=== PATIENT | female | born 1965 | race Caucasian/White ===

== ENCOUNTER → 2019-11-18 10:32 | Outpatient (CLI) | payer BC, SELFPAY ==
--- NOTE | ~2019-11-18 | MM_ITS ---
EXAMINATION: MM screening marcy BI w shu HISTORY: Screening mammogram TECHNIQUE: Craniocaudal and mediolateral oblique 3-D tomosynthesis images were obtained and synthetic 2-D images were generated. CAD analysis was submitted and interpreted. COMPARISON: 09/14/2018, 09/11/2018, 04/17/2017 BREAST PARENCHYMAL COMPOSITION: The breasts are heterogeneously dense, which may obscure small masses . FINDINGS: Scattered benign-appearing calcifications are present. There is no evidence of suspicious m ass, calcification, or architectural distortion to suggest malignancy in either breast. There has bee n no suspicious interval change. IMPRESSION: 1. No mammographic evidence of malignancy. 2. Recommend routine screening mammography in one year. BI-RADS Category 2: Benign finding(s). Reviewed, dictated and finalized at location A.
== END ==
PROVIDERS: Visit Provider Obstetrics & Gynecology
DX: Z12.31 Encounter for screening mammogram for malignant neoplasm of breast (principal)
CPT/HCPCS: 77063; 77067

== ENCOUNTER 2019-12-25 00:21 | Outpatient (CLI) | payer BC, SELFPAY ==
[2019-12-25 18:42] LABS: SARS-CoV-2 RNA PCR Negative
== END 2019-12-25 00:22 | disposition home or self-care (01) ==
LOC: ANHCOVIDDT 00:21
PROVIDERS: PCP Physician Assistant; Visit Provider Internal Medicine Gastroenterology
DX: Z20.828 Contact with and (suspected) exposure to other viral communicable diseases (principal)
CPT/HCPCS: 87635; C9803; U0003

== ENCOUNTER 2019-12-27 01:00 | Day surgery (SDC) | payer BC, SELFPAY ==
[2019-12-19 15:10] VITALS: BMI 35.2
[2019-12-27 06:55] VITALS: BP 132/61; PULSE 71; RESP 18; TEMP 36.6; O2SAT 99; BMI 35.0
[2019-12-27] MEDS: LACTATED RINGERS 1,000 ML 150 ML IV CONT (07:06)
--- NOTE | 2019-12-27 07:13 | P.HP_ITS ---
History of Present Illness History of Present Illness Consent: Risks, benefits, and alternatives have been discussed and questions answered. Patient agrees to proceed with procedure. Chief complaint: Hx Colon Polyps Narrative: Danielle Nixon is a 54 year old female here for colonoscopy due to a history of having had a large sessile adenoma removed 3 years ago [facility] Family History Family History Mother Diabetes mellitus Hypertension Father Family history of cardiovascular disease Family history of chronic obstructive pulmonary disease Carcinoma of colon Social History Social History Smoking status: Never smoker Second hand tobacco smoke exposure: No Alcohol intake: never Meds Home Medications and Allergies Home Medications Medication Instructions Recorded Confirmed Type aspirin [Aspirin Low Dose] 81 mg PO DAILY 12/19/19 12/27/19 History atorvastatin 10 mg PO DAILY 12/19/19 12/27/19 History cholecalciferol (vitamin D3) 50 mcg PO DAILY 12/19/19 12/27/19 History [Vitamin D3] levothyroxine [Synthroid] 50 mcg PO DAILY 12/19/19 12/27/19 History spironolactone 25 mg PO DAILY 12/19/19 12/27/19 History spironolactone 100 mg PO DAILY 12/19/19 12/27/19 History Allergies Allergy/AdvReac Type Severity Reaction Status Date / Time No Known Allergies Allergy Verified 12/27/19 06:53 Vital Signs Vital Signs - 24 hr 12/27/19 06:55 Temperature 36.6 C Pulse Rate 71 Respiratory Rate 18 Blood Pressure 132/61 Pulse Oximetry 99 Exam Resp: Auscultation: clear to auscultation bilaterally Cardio: Rate: regular rate Rhythm: regular rhythm GI: GI Palp: Yes Soft to palpation and No Tenderness to palpation present (GI) Assessment and Plan Assessment and plan (1) Personal history of colonic polyps: Code(s): Z86.010 - Personal history of colonic polyps Status: Acute Assessment and Plan: Colonoscopy with possible biopsy or polypectomy or cautery or injection of substances.
--- NOTE | 2019-12-27 07:45 | WPDANESEPPF ---
Anes - Initial Pre Proc Eval Procedure: Operation Date: 12/27/19 08:00 Proposed Procedures p Screening Colonoscopy - Mihir Ham MD Date/Time: 12/27/19 07:45 Surgeon: Mihir Ham MD Pre Op Diagnosis: Hx Colon Polyps Patient Data Age: 54 Gender: F Height: 5 ft 6 in Weight: 98.5 kg Last Vital Signs Temp 97.8 F 12/27/19 06:55 Pulse 71 12/27/19 06:55 Resp 18 12/27/19 06:55 BP 132/61 12/27/19 06:55 Pulse Ox 99 12/27/19 06:55 Allergies Allergy/AdvReac Type Severity Reaction Status Date / Time No Known Allergies Allergy Verified 12/27/19 06:53 Home Medications Medication Instructions Recorded Confirmed Type aspirin [Aspirin Low Dose] 81 mg PO DAILY 12/19/19 12/27/19 History atorvastatin 10 mg PO DAILY 12/19/19 12/27/19 History cholecalciferol (vitamin D3) 50 mcg PO DAILY 12/19/19 12/27/19 History [Vitamin D3] levothyroxine [Synthroid] 50 mcg PO DAILY 12/19/19 12/27/19 History spironolactone 25 mg PO DAILY 12/19/19 12/27/19 History spironolactone 100 mg PO DAILY 12/19/19 12/27/19 History Patient hx anesthesia problems: none Family hx anesthesia problems: none PMFSH Past Medical History Medical History (Updated 12/27/19 @ 07:45 by John Aldana MD) Hyperlipidemia Hypothyroid Family History Family History Mother Diabetes mellitus Hypertension Father Family history of cardiovascular disease Family history of chronic obstructive pulmonary disease Carcinoma of colon Social History Social History Smoking status: Never smoker Second hand tobacco smoke exposure: No Alcohol intake: never Anes - Eval Final PreProcedure Day of Procedure 12/27/19 07:45 Patient weight: obese Airway: Mallampati scale class II Neurological: alert and oriented Last oral intake: >/= 8 hours ASA classification: II Emergent: no Anesthetic plan: proceed Anesthesia type and monitoring: general GIVS and standard monitoring Informed Consent: The patient's anesthetic plan and its attendant risks and benefits were discussed with the patient/family/POA. Questions were solicited and answers provided to the satisfaction of the patient/family/POA.
[2019-12-27 08:18] VITALS: BP 91/63; PULSE 80; RESP 16; O2SAT 97
[2019-12-27 08:28] VITALS: BP 106/74; PULSE 71; RESP 16; O2SAT 97
[2019-12-27 08:38] VITALS: BP 122/70; PULSE 62; RESP 16; O2SAT 99
== END 2019-12-27 09:01 | disposition home or self-care (01) ==
PROVIDERS: PCP Physician Assistant; Visit Provider Internal Medicine Gastroenterology
PROC: 0DJD8ZZ Inspection of Lower Intestinal Tract, Via Natural or Artificial Opening Endoscopic (ICD-10-PCS; CPT 45378; principal; 2019-12-27 08:00)
DX: Z12.11 Encounter for screening for malignant neoplasm of colon (principal); D12.5 Benign neoplasm of sigmoid colon; E03.9 Hypothyroidism, unspecified; E78.5 Hyperlipidemia, unspecified; E66.9 Obesity, unspecified; Z68.35 Body mass index [BMI] 35.0-35.9, adult; Z79.82 Long term (current) use of aspirin; Z79.899 Other long term (current) drug therapy
CPT/HCPCS: 45385; 88305; J2704; J7120

== ENCOUNTER 2020-06-01 09:06 | Outpatient (CLI) | payer BC, SELFPAY ==
--- NOTE | ~2020-06-01 | US_ITS ---
EXAMINATION: US soft tissue abdomen DATE: 06/01/2020 09:34 INDICATION: Right upper quadrant region of swollen tissue TECHNIQUE: Multiple grayscale and Doppler ultrasound images of the region of concern at the infracost al right upper quadrant abdominal wall were obtained. COMPARISON: None FINDINGS/IMPRESSION: There is varying thickness to the otherwise normal-appearing subcutaneous fat at the region of concer n without a discrete lipoma or other abnormal masses or fluid collections. Reviewed, dictated and finalized at location A. CIATE MERCHANDISE PLANNER
== END 2020-06-01 09:07 | disposition home or self-care (01) ==
PROVIDERS: PCP Physician Assistant; Visit Provider Physician Assistant
DX: R19.00 Intra-abdominal and pelvic swelling, mass and lump, unspecified site (principal)
CPT/HCPCS: 76705

== ENCOUNTER → 2021-03-02 12:20 | Outpatient (CLI) | payer BC, SELFPAY ==
--- NOTE | ~2021-03-02 | MM_ITS ---
EXAMINATION: MM screening marcy BI w shu HISTORY: Screening mammogram TECHNIQUE: Craniocaudal and mediolateral oblique 3-D tomosynthesis images were obtained and synthetic 2-D images were generated. CAD analysis was submitted and interpreted. COMPARISON: 11/18/2019 bilateral digital screening mammogram 09/14/2018 diagnostic right digital mammogram 09/11/2018, 04/17/2017 bilateral digital screening mammogram examinations BREAST PARENCHYMAL COMPOSITION: The breasts are heterogeneously dense, which may obscure small masses . FINDINGS: There is a biopsy marker in the right breast; history of prior right breast benign biopsy i n September 2018. Scattered benign calcifications. There is no evidence of suspicious mass, calcification, or architectural distortion to suggest malignancy in either breast. There has been no suspicious inte rval change. IMPRESSION: 1. No mammographic evidence of malignancy. 2. Recommend routine screening mammography in one year. BI-RADS Category 2: Benign finding(s). Reviewed, dictated and finalized at location A.
== END ==
PROVIDERS: PCP Physician Assistant; Visit Provider Obstetrics & Gynecology
DX: Z12.31 Encounter for screening mammogram for malignant neoplasm of breast (principal)
CPT/HCPCS: 77063; 77067

== ENCOUNTER → 2021-04-05 09:52 | Outpatient (CLI) | payer BC, SELFPAY ==
[2021-04-05 18:36] LABS: SARS-CoV-2 RNA PCR Negative
== END ==
PROVIDERS: PCP Physician Assistant; Visit Provider Internal Medicine
DX: R68.89 Other general symptoms and signs (principal); Z20.822 Contact with and (suspected) exposure to COVID-19
CPT/HCPCS: C9803; U0003; U0005

== ENCOUNTER → 2022-06-03 11:28 | Outpatient (CLI) | payer BC, SELFPAY ==
--- NOTE | ~2022-06-03 | MM_ITS ---
EXAMINATION: MM screening marcy BI w shu HISTORY: Screening mammogram TECHNIQUE: Craniocaudal and mediolateral oblique 3-D tomosynthesis images were obtained and synthetic 2-D images were generated. CAD analysis was submitted and interpreted. COMPARISON: 03/02/2021, 11/18/2019, 09/14/2018, 09/11/2018 BREAST PARENCHYMAL COMPOSITION: The breasts are heterogeneously dense, which may obscure small masses . FINDINGS: Scattered benign-appearing calcifications are present. No suspicious mass, calcification, o r architectural distortion are identified in either breast to suggest malignancy. There has been no s uspicious interval change. IMPRESSION: 1. No mammographic evidence of malignancy. 2. Recommend routine screening mammography in one year. BI-RADS Category 2: Benign finding(s). Reviewed, dictated and finalized at location A. ORARY DATA ENTRY CLERK
== END ==
PROVIDERS: PCP Physician Assistant; Visit Provider Nurse Practitioner Obstetrics & Gynecology
DX: Z12.31 Encounter for screening mammogram for malignant neoplasm of breast (principal)
CPT/HCPCS: 77063; 77067

== ENCOUNTER 2023-07-19 09:30 | Outpatient (RCR) | payer BC, SELFPAY ==
[2023-06-28 10:53] VITALS: BMI 41.5
[2023-06-28 10:55] VITALS: BMI 41.5
[2023-07-19 13:21] VITALS: BMI 41.5
== END 2023-09-11 09:46 | disposition home or self-care (01) ==
LOC: ANHDMC 09:30
PROVIDERS: PCP Physician Assistant; Visit Provider Internal Medicine
DX: E66.01 Morbid (severe) obesity due to excess calories (principal); Z68.41 Body mass index [BMI] 40.0-44.9, adult; Z71.3 Dietary counseling and surveillance
CPT/HCPCS: 97802; 97803

== ENCOUNTER 2023-11-21 11:29 | Outpatient (CLI) | payer BC, SELFPAY ==
--- NOTE | ~2023-11-21 | MM_ITS ---
EXAMINATION: MM screening [facility] BI w shu HISTORY: Screening TECHNIQUE: Craniocaudal and mediolateral oblique 3-D tomosynthesis images were obtained and synthetic 2-D images were generated. CAD analysis was submitted and interpreted. COMPARISON: Comparison to multiple prior studies sequentially, with oldest reviewed study dated 08/2016. BREAST PARENCHYMAL COMPOSITION: Not dense: There are scattered areas of fibroglandular density. FINDINGS: The left breast is stable without evidence for malignancy. There are developing clusters of calcifications in the upper central and upper outer quadrant of the right breast. There are developi ng low density masses in the lower inner quadrant of the right breast, middle third. IMPRESSION: 1. Developing right breast calcifications and masses. 2. Additional mammographic views and possible breast ultrasound are recommended. BI-RADS Category 0: Incomplete: Needs additional imaging evaluation. Reviewed, dictated and finalized at location B. IMPRESSION: 1. Developing right breast calcifications and masses. 2. Additional mammographic views and possible breast ultrasound are recommended . BI-RADS Category 0: Incomplete: Needs additional imaging evaluation.
== END 2023-11-21 11:30 ==
LOC: MICIMG 11:31
PROVIDERS: PCP Physician Assistant; Visit Provider Physician Assistant
DX: Z12.31 Encounter for screening mammogram for malignant neoplasm of breast (principal); N64.89 Other specified disorders of breast
CPT/HCPCS: 77063; 77067

== ENCOUNTER 2023-11-28 08:51 | Outpatient (CLI) | payer BC, SELFPAY ==
--- NOTE | ~2023-11-28 | MMUS_ITS ---
EXAMINATION: MM diagnostic marcy RT w shu, US breast RT complete HISTORY: Follow-up right breast calcifications and masses. TECHNIQUE: Additional 3-D tomosynthesis images of the right breast were performed and synthetic 2-D i mages were generated. CAD analysis was submitted and interpreted. High resolution complete right will st ultrasound was performed. COMPARISON: Comparison to multiple prior studies sequentially, with oldest reviewed study dated 09/11. BREAST PARENCHYMAL COMPOSITION: Not dense: There are scattered areas of fibroglandular density. FINDINGS: MAMMOGRAPHIC FINDINGS: There is a new cluster of indeterminate calcifications in the upper outer quadrant of the right breas t, middle third. There is a nearby cluster of punctate calcifications with associated tissue marker, biopsy-proven benign. No discrete mass or architectural distortion is seen. ULTRASOUND: Complete US of all 4 quadrants of the right breast and retroareolar region was reviewed. At 1:00, 5 c m from the nipple there is a 4 mm cyst. At 4:00 near the nipple there is a 3 mm cyst. At 10:00, 6 cm from the nipple there is a 4 mm cyst. No suspicious masses are identified in the right breast to sugg est malignancy. IMPRESSION: 1. Indeterminate cluster of calcifications upper outer quadrant of the right breast, new compared wit h prior study. 2. Stereotactic right breast biopsy recommended. BI-RADS category 4, suspicious findings. Reviewed, dictated and finalized at location B. IMPRESSION: 1. Indeterminate cluster of calcifications upper outer quadrant of the right br east, new compared with prior study. 2. Stereotactic right breast biopsy recommended. BI-RADS category 4, suspicious findings.
== END 2023-11-28 08:52 ==
LOC: MICIMG 08:52
PROVIDERS: PCP Physician Assistant; Visit Provider Internal Medicine
DX: R92.8 Other abnormal and inconclusive findings on diagnostic imaging of breast (principal)
CPT/HCPCS: 76641; 77061; 77065; G0279

== ENCOUNTER 2024-01-04 08:47 | Outpatient (CLI) | payer BC, SELFPAY ==
--- NOTE | ~2024-01-04 | MM_ITS ---
MM post biopsy invasive RT, MM stereotactic specimen RT, MM stereotactic bx RT EXAMINATION: MM post biopsy invasive RT, MM stereotactic specimen RT, MM stereotactic bx RT DATE: Ezequiel Torres M.D. INDICATION: Abnormal calcifications in the right breast. Stereotactic core biopsy is requested evalu ate for malignancy.] TECHNIQUE AND FINDINGS: The risks and potential benefits of the procedure were discussed with the patient and written informe d consent was obtained. The patient was placed in the prone position clustered at the table with the right breast in craniocaudal compression, and the area of interest was localized and targeted utiliz ing digital imaging with stereotaxis. After sterile preparation of the skin, 1% lidocaine was utilized for local anesthesia at the skin pun cture site and 1% lidocaine with epinephrine was utilized for deeper local anesthesia/is about the bi opsy site. A 9G POSLavu vacuum assisted biopsy needle was advanced to the level of the calcification o f interest from a cephalad approach utilizing stereotactic guidance and a total of 6 tissue core biop sies were obtained. A specimen radiograph demonstrates that the calcifications of interest are included within the tissue cores. A tissue marker clip was then placed at the biopsy site. The needle was removed and hemosta sis was achieved. The patient tolerated the procedure well and there is no evidence of significant i mmediate complication. The patient was given verbal as well as written postprocedural instructions p rior to discharge from the department. Tissue cores were submitted to surgical pathology for histolo gic analysis. A 2-view right unilateral digital mammogram was obtained post procedure and this demonstrates that th e tissue marker clip is in expected position.] IMPRESSION: 1. Successful stereotactic biopsy of calcifications in the upper central aspect of the right breast, followed by tissue marker clip placement. Please refer to pathology report for histologic analysis. Reviewed, dictated and finalized at location B. IMPRESSION: 1. Successful stereotactic biopsy of calcifications in the upper central aspec t of the right breast, followed by tissue marker clip placement. Please refer to pathology report for histologic analysis. IMPRESSION: 1. Successful stereotactic biopsy of calcifications in the upper central aspec t of the right breast, followed by tissue marker clip placement. Please refer to pathology report for histologic analysis.
== END 2024-01-04 08:48 | disposition home or self-care (01) ==
PROVIDERS: PCP Internal Medicine; Visit Provider Internal Medicine
DX: R92.8 Other abnormal and inconclusive findings on diagnostic imaging of breast (principal)
CPT/HCPCS: 19081; 88305

== ENCOUNTER 2024-04-23 09:58 | Outpatient (CLI) | payer BC, SELFPAY ==
--- NOTE | ~2024-04-23 | DEXA_ITS ---
Bone Density Report Name: ROSIO MEDINA Age: 59 Sex: Female Ethnicity: White Date of : 1965 Indication: postmenopausal; screening for osteoporosis; hysterectomy; Referring Provider: ALLEN, CAROLINE Snell Study: Bone densitometry was performed. Exam Date: April 23, 2024 Accession number: [id number] Bone Density: Region BMD T-score Z-score Classification AP Spine(L1-L4) 1.028 -0.2 1.1 Normal Femoral Neck (Left) 0.842 -0.1 1.1 Normal Total Hip (Left) 1.104 1.3 2.2 Normal Femoral Neck (Right) 0.861 0.1 1.3 Normal Total Hip (Right) 1.162 1.8 2.6 Normal Total Hip Mean 1.133 1.6 2.4 Normal World Health Organization criteria for BMD impression classify patients as: Normal (T-score at or above -1.0), Osteopenia (T-score between -1.0 and -2.5), or Osteoporosis (T-score at or below -2.5). 10-year Fracture Risk: FRAX not reported because: All T-scores for Spine Total, Hip Total, Femoral Neck at or above -1.0 Clinical Information Provided by Patient: Has used the following medications: Vitamin D Has the following medical conditions: Hysterectomy Patient maximum height was 66 Menopause Age: 31 No regular weight bearing exercise Drinks caffeinated beverages Onset of menses at age 13 Number of children 2 Impression: The patient has normal bone mass. Discussion: BONE DENSITY IS ABOVE THE MINIMUM DESIRABLE LEVEL AT ALL SKELETAL SITES TESTED. This patient?s bone mineral density is above the minimum desirable level (T-score -1.0 or better) at all sites measured. The patient should follow a healthful lifestyle (good nutrition with adequate calcium and vitamin D, and appropriate weight-bearing exercise). Follow-Up: Consider repeating this study in 5 years or sooner if there is some new clinical indication. Reported by: GLADYS on 04/23/2024 10:35:00 AM. Reviewed, dictated and finalized at location APeter CALVERT
== END 2024-04-23 09:59 | disposition home or self-care (01) ==
PROVIDERS: PCP Internal Medicine; Visit Provider Physician Assistant
DX: M81.0 Age-related osteoporosis without current pathological fracture (principal)
CPT/HCPCS: 77080

== ENCOUNTER 2024-06-05 09:09 | Outpatient (CLI) | payer BC, SELFPAY ==
[2024-06-05 09:29] LABS: Basophils Percent Auto 0.8 % (0.2-1.2); Eosinophils Absolute Auto 0.1 K/mm3 (0-0.3); Eosinophils Percent Auto 2.6 % (0-4.4); Hematocrit 44.2 % (37.0-47.0); Hemoglobin 14.2 g/dL (12.0-15.0); Immature Granulocyte Absolute 0.01 K/mm3 (0.00-0.031); Immature Granulocyte Percent A 0.2 % (0-0.5); Lymphocytes Absolute Auto 2.09 K/mm3 (0.9-3.2); Lymphocytes Percent Auto 41.4 % (18.3-44.2); Mean Corpuscular HGB Conc 32.1 g/dl (32-36); Mean Corpuscular Hemoglobin 29.7 pg (26-34); Mean Corpuscular Volume 92.5 fl (80-100); Mean Platelet Volume 10.1 fl (7.4-10.4); Monocytes Absolute Auto 0.4 K/mm3 (0.1-0.6); Monocytes Percent Auto 7.7 % (2.6-8.5); Neutrophils Absolute Auto 2.4 K/mm3 (1.3-6.7); Neutrophils Percent Auto 47.3 % (45.5-73.1); Platelet Count Result 200 k/mm3 (150-375); Red Blood Count 4.78 M/mm3 (4.2-5.4); Red Cell Distribution Width 13.2 % (11.5-14.5); White Blood Count 5.1 K/mm3 (4.5-10.0)
[2024-06-05 09:44] LABS: Alanine Aminotransferase 16 U/L (6-35); Albumin Level 4.3 g/dL (3.5-5.1); Alkaline Phosphatase 69 U/L (38-126); Anion Gap 8 mmol/L (4-12); Aspartate Amino Transferase 18 U/L (14-36); Bilirubin,Total 0.5 mg/dL (0.2-1.3); Blood Urea Nitrogen 18 mg/dL (7-17); Calcium 9.3 mg/dL (8.4-10.2); Carbon Dioxide 28 mmol/L (22-30); Chloride 103 mmol/L (98-107); Cholesterol 194 mg/dL (0-200); Estimated Glomerular Filt Rate > 60; Glucose 104 mg/dL (65-110); HDL Direct 63 mg/dL; Potassium 4.4 mmol/L (3.4-5.0); Sodium 139 mmol/L (137-145); Triglycerides 145 mg/dL (<150)
[2024-06-05 09:59] LABS: LDL Cholesterol Direct 94 mg/dL
[2024-06-05 10:01] LABS: Free T4 Free Thyroxine 1.04 ng/dL (0.78-2.19); Vitamin D 25 Hydroxy 70.9 ng/mL
--- OUTSIDE RECORDS SUMMARY | 2024-06-06 22:19 | XMS_ITS | Referral Summary ---
Author Organization [facility] Address [address] [place] [address] Care Team Providers Care Dba Name Role Phone Unavailable Primary Care Provider Unavailabl e Source Comments [facility],non-owned Affiliates and Associated Physician Practices is amultiple site organization consisting of ambulatory clinics and hospital sitesin [place], [place], [place] and [place]. This disclosure is being madepursuant to the Care Everywhere program and may not contain all information available regarding this patient. Last updated 18.[facility] [employer] Social History Tobacco Use Types Packs/Day Years Used Date Smoking Tobacco: Never Assessed Sex and Gender Information Value Date Recorded Sex Assigned at Not on file Gender Identity Not on file Sexual Orientation Not on file Plan of Treatment Not on file
--- OUTSIDE RECORDS SUMMARY | 2024-06-06 22:19 | XMS_ITS | Encounter Summary ---
Author Organization [facility] Address [address] [place] [address] Care Team Providers Care User Experience Team Lead Name Role Phone Unavailable Primary Care Provider Unavailabl e Encounter Details Date Type Department Care Team (Late st Contact Info) Description 06/13/2018 Lab Requisition [facility] [address] [place] [address] Vianey Quiroz MD [address] [facility] [address] [place] [address] Social History Tobacco Use Types Packs/Day Years Used Date Smoking Tobacco: Never Assessed Sex and Gender Information Value Date Recorded Sex Assigned at Not on file Gender Identity Not on file Sexual Orientation Not on file documented as of this encounter Plan of Treatment Not on file documented as of this encounter Procedures Procedure Name Priority Date/Time Associated Diagnosis Comments DERMATOPATH TECHNICAL REPORT Routine 06/11/2018 12:00 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 Case: [id number] ? Authorizing Provider: ??Vianey Quiroz MD ? Collected: ? 06/11/2018 12:00 AM ? Pathologist: ? Judy Woodard MD ?Received: ?06/13/2018 06:30 AM ? Specimen: ?Skin, right back ? 11:16 AM [facility] Clinical History Nevus vs other, irritated. 11:16 AM [facility] Gross Description Specimen A: Received is one formalin filled container labeled with the patient's name and designated right back. The specimen consists of a shave measuring 2l5o1od. Jar 0. [facility] Dermatopathology Laboratory performed the technical component only. 11:16 AM [facility] Embedded Images 11:16 AM [facility] DISCLAIMER An external and internal positive and negative controls are appropriate for the histochemical, immunohistochemical and immunofluorescence stain(s) in this case (if any), except where stated explicitly. The performance characteristics of the stain(s) cited in this report were developed and its performance characteristic determined by the Dermatopathology Laboratory at [facility], directed by Dr. Alis Shepherd. These tests need not be, and therefore are not, approved by the [place] Food and Drug Administration. The tests are used for clinical purposes. 11:16 AM [facility]ERMATOP[facility] Pathology/Cytolog y TISSUE SPECIMEN FROM SKIN / Unknown 06/11/2018 06/13/2018 6:30 AM [facility] Vianey Quiroz MD LAB - PATHOLOGY/CYT OLOGY ORDERABLES DERMATOPATHOLOGY LABORATORY [facility] - Department of Dermatology [address] [place] [address], [facility] [phone] documented in this encounter Visit Diagnoses Not on filedocumented in this encounter
--- OUTSIDE RECORDS SUMMARY | 2024-06-06 22:19 | XMS_ITS | Encounter Summary ---
Author Organization [facility] Address [address] [place] [address] Care Team Providers Care Cleaning And Maintenance Worker Name Role Phone Unavailable Primary Care Provider Unavailabl e Encounter Details Date Type Department Care Team (Late st Contact Info) Description 03/30/2020 Lab Requisition [facility] [address] [facility] [address] [facility] [address] [place] [address] Vianey Quiroz MD [address] [facility] [address] [place] [address] Social History Tobacco Use Types Packs/Day Years Used Date Smoking Tobacco: Never Assessed Sex and Gender Information Value Date Recorded Sex Assigned at Not on file Gender Identity Not on file Sexual Orientation Not on file documented as of this encounter Plan of Treatment Not on file documented as of this encounter Procedures Procedure Name Priority Date/Time Associated Diagnosis Comments DERMATOPATHOLOGY Routine 03/26/2020 12:0 0 AM VISUAL MERCHANDISE MANAGER documented in this encounter Results * DERMATOPATHOLOGY (03/26/2020 12:00 AM VISUAL MERCHANDISE MANAGER) Case Report Dermatopathology Report ? Case: [id number] ? Authorizing Provider: ??Vianey Quiroz MD ? Collected: ? 03/26/2020 12:00 AM ? Ordering Location: ? [facility] ?Received: ?03/30/2020 10:48 AM ? Pathologist: ? Jessica Shepherd MD ? Specimen: ?Skin, right wade ? 0 3:45 PM [facility] DERMATOPATH[facility] Final Diagnosis Specimen A. SKIN, right wade: SEBORRHEIC KERATOSIS, MACULAR (L82.1) 0 3:45 PM [facility]ERMATOPATH[facility] Clinical History Lentigo R/O atypia; growing irregular color 0 3:45 PM [facility] Gross Description Specimen A: Received is one formalin filled container labeled with the patient's name and designated right wade. The specimen consists of a shave biopsy measuring 12x7x1 and 3x1x1 mm. Jar 0. 0 3:45 PM [facility] Microscopic Description Specimen A. SKIN, right wade: Sections show a relatively broad, flat proliferation of small keratinocytes. The surface is gently papillated, and there is increased basilar pigmentation. 0 3:45 PM [facility] Disclaimer An external and internal positive and negative controls are appropriate for the histochemical, immunohistochemical and immunofluorescence stain(s) in this case (if any), except where stated explicitly. The performance characteristics of the stain(s) cited in this report were developed and its performance characteristic determined by the Dermatopathology Laboratory at [facility], directed by Dr. Alis Shepherd. These tests need not be, and therefore are not, approved by the [place] Food and Drug Administration. The tests are used for clinical purposes. Billing Codes Specimen Charges Stain Charges 63474 1 0 3:45 PM [facility] Embedded Images 0 3:45 PM VISUAL MERCHANDISE MANAGER DERMATOPATHOLOGY LABORATORY Pathology/Cytolog y TISSUE SPECIMEN FROM SKIN / Unknown 03/26/2020 03/30/2020 10:48 AM VISUAL MERCHANDISE MANAGER Vianey Quiroz MD LAB - PATHOLOGY/CYT OLOGY ORDERABLES DERMATOPATHOLOGY LABORATORY [facility] - Department of Dermatology [facility] [address] [place] [address], [address] [phone] documented in this encounter Visit Diagnoses Not on filedocumented in this encounter
--- OUTSIDE RECORDS SUMMARY | 2024-06-06 22:19 | XMS_ITS | Data Portability ---
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 Patient will come back in a year unless there are new symptoms. Not available 03/01/2021 17:21:23 Plan of Treatment Reminders Order Date Submit Date Provider Last Modified By Organization Details Last Modified Time Details Appointments None record ed. Lab None record ed. Referral None record ed. Procedures None record ed. Surgeries None record ed. Imaging None record ed. Medication Orders None record ed. Patient TargetsNo targets recorded. Patient InstructionsNo instructions recorded. Reason for Referral None Reported. Results Created Date Observation Date Name Description Value Unit Range Abnormal Flag Note LastModifiedBy Organization Detail LastModifiedTime 03/02/2003/02/2021 MAMMO , scree valerie, bilat eral No observ ation record ed. ar[facility]hrup [facility] [address], [place], [address], 03/02/2021 18:30:40 06/03/19 23 06/03/2022 MAMMO , scree valerie, bilat eral No observ ation record ed. MANUEL [facility] [address], [place], [address], 06/22/2022 05:20:06 Result Notes None recorded. Problems Name Problem SNOMED Code Status Onset Date Resolution Date Notes Provider Name and Address Organization Details Recorded Time Screenin g for malignan t neoplasm of rectum Completed 201503/01/2021 Encounter for screening for malignant neoplasm of rectum;Re corded Elsewhere : No Locati on: [facility] So urce: EHR Chron ic: N Practic e ID: 0001 Bill able Time: 10:00:00 AM Maxine [facility] 17:13:31 Tinea corporis [id number] Completed 201503/01/2021 Tinea corporis; Recorded Elsewhere : No Locati on: [facility] So urce: EHR Chron ic: N Practic e ID: 0001 Bill able Time: 10:00:00 AM Maxine [facility] 17:13:[address] Concept Completed 201803/01/2021 Encntr for general adult medical exam w/o abnormal findings; Recorded Elsewhere : No Locati on: [facility] So urce: EHR Chron ic: N Practic e ID: 0001 Bill able Time: 09:30:00 AM Maxine [facility] 17:13:32 Increase d frequenc y of urinatio n [id number] Completed 201303/01/2021 Urinary frequency ;Recorded Elsewhere : No Locati on: [facility] So urce: EHR Chron ic: N Practic e ID: 0001 Bill able Time: 11:00:00 AM Maxine [facility] 17:13:[address] Concept Completed 201503/01/2021 Encntr for drawing checker exam (general) (routine) w/o abn findings; Recorded Elsewhere : No Locati on: [facility] So urce: EHR Chron ic: N Practic e ID: 0001 Bill able Time: 10:00:00 AM [facility]ine [facility] 17:13:34 Blood in urine [id number] Completed 201303/01/2021 HEMATURIA NOS;Recor ded Elsewhere : No Locati on: [facility] So urce: EHR Chron ic: N Practic e ID: 0001 Bill able Time: 03:59:58 PM Maxine [facility] 17:13:22 Speciali zed medical examinat ion Completed 201303/01/2021 Gynecolog ical Examinati on;Record ed Elsewhere : No Locati on: [facility] So urce: EHR Chron ic: N Practic e ID: 0001 Bill able Time: 11:00:00 AM [facility]ine [facility] 17:13:35 Female genital organ symptoms [id number] Completed 201303/01/2021 Pelvic pain;Alon rded Elsewhere : No Locati on: [facility] So urce: EHR Chron ic: N Practic e ID: 0001 Bill able Time: 11:00:00 AM Maxine [facility] 17:13:25 Adult health examinat ion Completed 201303/01/2021 ROUTINE MEDICAL EXAM;Alon rded Elsewhere : No Locati on: [facility] So urce: EHR Chron ic: N Practic e ID: 0001 Bill able Time: 11:00:00 AM [facility]ine [facility] 17:13:20 Screenin g for malignan t neoplasm of cervix Completed 201103/01/2021 Screening for malignant neoplasms of the cervix;Re corded Elsewhere : No Locati on: [facility] So urce: EHR Chron ic: N Practic e ID: 0001 Bill able Time: 10:00:00 AM [facility]ine [facility] 17:13:29 Radiolog ic finding [id number] Completed 201803/01/2021 Oth abn and inconclus placido findings on dx imaging of breast;Re corded Elsewhere : No Locati on: [facility] So urce: EHR Chron ic: N Practic e ID: 0001 Bill able Time: 08:19:09 AM [facility] 17:13:23 Microsco pic hematuri a [id number] Completed 201303/01/2021 HEMATURIA MICROSCOP IC;Practi ce ID: 0001 [facility] 17:13:28 Problem Notes None recorded. Procedures Surgical History Date Name Laterality Status Provider Name and Address Organization Details Recorded Time 03/02/20 21 Date of Last Mammogram completed [facility] 03/02/2021 15:08:53 04/17/20 17 Date of Last Pap Smear completed [facility] 03/01/2021 17:18:32 05/15/18 97 Total Hysterectomy completed [facility] 03/01/2021 17:17:23 05/15/18 94 Tubal Ligation completed [facility] 03/01/2021 17:17:08 dilation of pyloric stenosis using fluoroscopic guidance completed Ese Swan, [facility]- [address], [place], [address], [facility] 03/02/2021 15:22:04 Imaging Results Imaging Date Name Status LastModified by Organiz [facility] Details LastModified Time 03/02/2021 MAMMO, screening, bilateral completed [facility] [address], [place], [address], 03/02/2021 18:30:40 06/03/2022 MAMMO, screening, bilateral active MANUEL [facility] [address], [place], [address], 06/22/2022 05:20:06 Procedure Notes None recorded. Medical Equipment None Reported. Allergies No known drug allergies Medications Name Sig Start Date Stop Date Status Note LastModified by Organization Details LastModified Time atorvasta tin 10 mg tablet take 1 tablet (10MG) by oral route every day active Not Available Not Available No t Available spironola ctone 100 mg tablet active Not Available Not Available No t Available spironola ctone 25 mg tablet take 1 tablet by oral route every day 03/02 completed Not Available Not Available Not Available Synthroid 25 mcg tablet take 1 tablet by oral route every day 11/21 completed Prescrib ed Elsewher e: No Locat ion: [facility] odify By: liban mishra DateTime : 09/18/19 01:40:38 PM Not Available Not Available Not Available sulfameth azine (bulk) powder 10/20 completed Prescrib ed Elsewher e: Yes Loca tion: [facility] odify By: edil lopes DateTime : 09/21/19 12 10:00:00 AM Not Available Not Available Not Available levothyro xine 50 mcg tablet TAKE 1 TABLET DAILY active Not Available Not Available No t Available mupirocin 2 % topical ointment KOFFI TO WOUND BID. 03/02 completed Not Available Not Available Not Available nystatin 100,000 unit/gram topical powder apply by topical route 2 times every day to the affected area(s) 04/17 completed Prescrib ed Elsewher e: No Locat ion: [facility] odify By: edil lopes DateTime : 10/21/19 16 10:00:00 AM Not Available Not Available Not Available Vitamin D2 1,250 mcg (50,000 unit) capsule take 1 capsule by oral route every week 03/02 completed Prescrib ed Elsewher e: No Locat ion: [facility] odify By: starr lopes DateTime : 11/23/19 08:25:52 AM Not Available Not Available Not Available ketoconaz ole 2 % topical cream apply by topical route every day to the affected area(s) 04/17 completed Prescrib ed Elsewher e: No Locat ion: [facility] odify By: edil Morrissey ncounter DateTime : 10/21/19 16 10:00:00 AM Not Available Not Available Not Available Stanback Headache Powder 650 mg oral packet 03/02 completed Prescrib ed Elsewher e: Yes Loca tion: [facility] odify By: starr Morrissey ncounter DateTime : 09/21/19 12 10:00:00 AM Not Available Not Available Not Available Calcio Mayi 500 mg tablet 03/02 completed Prescrib ed Elsewher e: Yes Loca tion: [facility] odify By: starr Morrissey ncounter DateTime : 09/21/19 12 10:00:00 AM Not Available Not Available Not Available Vitamin D3 125 mcg (5,000 unit) tablet Take by oral route. active Not Available Not Available No t Available Vitals Date Recorded Body height Body mass index (BMI) Body weight Systolic blood pressure Diastolic blood pressure Provider Name and Address Organization Details Last Updated DateTime 03/02/2021 163.83 cm 40.4 kg/m2 566615.5 8 g 122 mm[Hg] 78 mm[Hg] Maxine [facility] 15:08:16 Social History Question Answer Notes LastModified by Organizat ion Details LastModified Time Tobacco Smoking Status Never Smoker [facility] 03/01/2021 17:16:36 What Is Your Level Of Alcohol Consumption? Occasional Information not available 03/01/2021 Are You Blind Or Do You Have Difficulty Seeing? No Information not available 03/01/2021 What Is Your Level Of Caffeine Consumption? Occasional Information not available 03/01/2021 Are You Deaf Or Do You Have Serious Difficulty Hearing? No Information not available 03/01/2021 What Type Of Diet Are You Following? REGULAR Information not available 03/01/2021 Do You Use Your Seat Belt Or Car Seat Routinely? Yes Information not available 03/01/2021 Do You Have Smoke And Carbon Monoxide Detectors In Your Home? Yes Information not available 03/01/2021 Do You Feel Stressed (tense, Restless, Nervous, Or Anxious, Or Unable To Sleep At Night)? [id number] Information not available 03/01/2021 Do You Use Any Illicit Or Recreational Drugs? No Information not available 03/01/2021 Do You Use Sunscreen Routinely? Yes Information not available 03/01/2021 Sex: Unknown Functional Status Question Answer Note LastModified by Organizat ion Details LastModified Time Are you able to walk? YESWOREST Information not available 03/01/2021 What is your exercise level? Occasional Information not available 03/01/2021 Mental Status None recorded. Family History Relationship Description Onset Age of this Age Resolved Age Notes LastModified by Organization Details LastModified Time Father Malignant tumor of colon Not available 2020 17:15:27 Father Chronic obstructive pulmonary disease Not available 2020 17:15:34 Father Heart disease Not available 2020 17:15:39 Father Anemia Not available 14:54:52 Father Hypercholest erolemia Not available 2020 14:55:10 Maternal Grandfather Heart disease Not available 2020 17:15:56 Mother Hypertensive disorder Not available 2020 17:16:05 Mother Diabetes mellitus Not available 2020 14:54:35 Mother Hypercholest erolemia Not available 2020 14:54:42 Maternal Aunt Malignant tumor of breast Not available 2020 14:55:26 Maternal Aunt Malignant tumor of breast Not available 2020 14:55:26 Medical History Condition Response Allergies (Food, seasonal, environmental ) N Other N Drug/Latex Allergies/Reactions N Breast Cancer N Blood Transfusion N Lung Disease N Dermatologic Disorders N Defects or Inherited Disease N Breast Problem N Gestational Diabetes N Hematologic disorders N Anesthesia Complications N History of STI N Deep Vein Thrombosis N Polycystic ovary syndrome N Anxiety Disorder N Autoimmune disease N Arthritis N Polyps N Infertility N History of abnormal pap N Acid Reflux (GERD) N Cancer N Varicosities N Stroke N Neurologic/Epilepsy N Endometriosis N High Cholesterol N Headaches N Fibromyalgia N Kidney Disease N Heart Problems N Thyroid Problems N Kidney or Bladder Problems N GI Problems N Eating Disorder N Anemia N Art (IVF or FET) N Psychiatric Illness N Ovarian Cancer N Diabetes N Pulmonary (TB, Asthma) N Hepatitis/Liver Disease N No Past Medical History N Eczema N Urinary Tract Infection N Abuse/Domestic Violence N Asthma N Trauma/Violence N Depression/ depression N Heart Disease N Pre-Eclampsia N Hypertension N Osteoporosis N Thrombophilias N Gynecological History Statement/Question Response Abnormal Pap N Date of Last Mammogram 03/02/2021 Date of LMP 05/15/1995 STIs/STDs N Current Control Method Hysterectom y 14 If Post Menopausal, Age at Menopause [age] Sexually Active? Y Age of first menstrual cycle 14 Date of Last Pap Smear 04/17/2017 Sexual Problems? N Obstetrics History GPAL:G 2 P 0 0 0 2 Type Value Living 2 Total 2 Past Encounters Encounter ID Performer Location Encounter Start Date Encounter Closed Date Diagnosis/Indication Diagnosis SNOMED-CT Code Diagnosis ICD10 Code Diagnosis Note [id number] Ese Swan [facility] [address] [address] 03/02/2021 14:33:51 03/02/2021 15:39:25 Gynecologic examination 74949730 Z01.419 Take Calcium with Vitamin D 12-1500mg daily. Do monthly self breast exams. It is advised to get annual flu shot in the fall and she could obtain at [facility] or [facility]. If you haven't received the Tdap vaccine in the last 10 years you should obtain one as well. Have mammogram yearly, bone density every 2-3 years and colonoscop y every 5-10 years depending on findings and history. Engage in daily exercise of low impact aerobic exercise 45-60 minutes 4-5 times weekly. Avoid tobacco and illicit drugs as well as using moderation with alcohol intake less than 1-2 8 oz beverages daily. This lifestyle behavior pattern will lead to less health conditions and longer life span. If BMI greater than 25 weight watchers or dietary consult advised. Questions have been answered. Patient appears to understand instructio ns, but if you have any further questions call or respond to this email USPSTF recommends against screening for cervical cancer in women older than 65yo or have a hysterecto my for non-cancer indication s; who have had adequate prior screening & are not otherwise at high risk for cervical cancer. Declined std screenMamm o done today wnlColon 2019 managed by PCP (vineet)Lucas consider age 60yo unless otherwise indicated. Family his tory of breast cancer [id number] Z80.3 Z80.0 Family history of colon & breast in her familyDisc ussed genetic screening. Declined but will consider moving forward.St ays up with all her yearly or required screenings No other family member has had genetic screening that she is aware of. Health Concerns Section Related Observation LastModified by Organization Detai ls LastModified Time None Recorded Concern Status LastModified by Organization Details LastModified Time None Recorded Advance Directives Directive None Recorded Payers Encounter Date Sequence Insurance Name Policy Number Policy Mohan Covered Member ID Mohan Member ID Guarantor Name 03/02/2021 1 [employer] [facility] [facility]: (PPO) [id number] Yovani Wong Tiffani [id number] Notes Date Note Type Note Provider Name and Address Organization Details Recorded Time 03/02/2021 text/html Annual Emt I/99 Post-MenopausalRe ported bypatient.Menopau murali Symptoms:no menopausal symptoms; normal vaginal lubrication Vaginal Bleeding:history of menopause having occurred; no history of post menopausal bleeding Urinary Symptoms:no hematuria; no incontinence; no nocturia; no urinary frequency Vulva:no genital lesion; no vulvar atrophy Vagina:normal vaginal discharge; no vaginal atrophy Breast:no breast lump; no nipple discharge; no breast pain Sexual Complaints:no sexual complaints Psychological Symptoms:no depression; no anxiety Preventive Measures:encourag e regular mammograms starting age 40; encourage self breast examination; encourage regular exercise; encourage no tobacco use; mammogram performed within the past year; history of recent colonoscopy Ese Swan, [facility]- [address], [place], [address], [place] [facility] 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 Status 03/01/20 21 1 CLOSED Fetus Data First Name Last Name Admitted to NICU Weight (g) Sex Living Outcome Pediatric Complications Fetus ID Race Codes Race Delivery Type [id number] Vaginal Delivery Ayad Calculation Initial Ayad Date Initial Exam Date Initial Exam Provider Initial Ultrasound Date Last Menstrual Period Date Ultra Sound Weeks Gestation 0 Eighteen To Twenty Week Ayad Update Ultra Sound Date Fundal Height At Umbil Quickening Date Ultra Sound Latest Weeks Gestation Final Ayad Confirmed By Final Ayad Confirmed Date Final Ayad Date Ultra Sound Latest Days Gestation 0 0 Menstrual History Last Menstrual Date Menses Monthly On Bcp Conception Prior Menses Frequency Hcg Plus Date Menarche Onset Age Delivery Information Delivery Date Delivery Type Labor Anesthesia Weeks Gestation Incision Type Labor Labor Length Hrs Delivered By Post Complications Tubal Sterilization Discharge Date Comments 3 Discharge Information Feeding Method Contraceptive Method Maternal HG B and HCT Levels Ob Episode Information Episode Created Date Number of Fetuses Patient Bloodtype Patient rh Status Prepregnancy Weight lbs Domestic Partner Domestic Partner Phone Father Name Glass Furnace Tender Status 03/01/20 21 1 CLOSED Fetus Data First Name Last Name Admitted to NICU Weight (g) Sex Living Outcome Pediatric Complications Fetus ID Race Codes Race Delivery Type F [id number] Vaginal Delivery Ayad Calculation Initial Ayad Date Initial Exam Date Initial Exam Provider Initial Ultrasound Date Last Menstrual Period Date Ultra Sound Weeks Gestation 0 Eighteen To Twenty Week Ayad Update Ultra Sound Date Fundal Height At Umbil Quickening Date Ultra Sound Latest Weeks Gestation Final Ayad Confirmed By Final Ayad Confirmed Date Final Ayad Date Ultra Sound Latest Days Gestation 0 0 Menstrual History Last Menstrual Date Menses Monthly On Bcp Conception Prior Menses Frequency Hcg Plus Date Menarche Onset Age Delivery Information Delivery Date Delivery Type Labor Anesthesia Weeks Gestation Incision Type Labor Labor Length Hrs Delivered By Post Complications Tubal Sterilization Discharge Date Comments 0 Discharge Information Feeding Method Contraceptive Method Maternal HG B and HCT Levels
--- OUTSIDE RECORDS SUMMARY | 2024-06-06 22:19 | XMS_ITS | Clinical Summary ---
Author Organization [facility] Address [address] [place] [address] Care Team Providers Care Embedded Nurse Name Role Phone Unavailable Primary Care Provider Unavailabl e Source Comments [facility] [employer],non-owned Affiliates and Associated Physician Practices is amultiple site organization consisting of ambulatory clinics and hospital sitesin [place], [place], [place] and [place]. This disclosure is being madepursuant to the Care Everywhere program and may not contain all information available regarding this patient. Last updated 18.[facility] [employer] Social History Tobacco Use Types Packs/Day Years Used Date Smoking Tobacco: Never Assessed Sex and Gender Information Value Date Recorded Sex Assigned at Not on file Gender Identity Not on file Sexual Orientation Not on file Plan of Treatment Health Maintenance Due Date Last Done Comments COLOGUARD (AGES 45-75) - COL ON CA SCREENING 1966 COLON MONITORING 1966 COLONOSCOPY - COLON CA SCREENING 1966 CT COLONOGRAPHY - COLON CA SCREENING 1966 Colorectal Cancer Screening 1966 FIT - COLON CA SCREENING 1966 FLEX SIG - COLON CA SCREENING 1966 LIPID TESTING 1966 MAMMOGRAM 1966 HIV SCREENING 1981 HEPATITIS C SCREENING 04/09/1984 DTAP/TDAP/TD VACCINES (1 - Tdap) 1985 HEPATITIS B VACCINE (1 of 3 - 19+ 3-dose series) 1985 PAP with HPV 1996 PNEUMOCOCCAL VACCINE 50+ (1 of 1 - PCV) 2016 ZOSTER VACCINE (1 of 2) 2016 COVID-19 VACCINE ( - 2023-2 5 season) 2024 INFLUENZA VACCINE (#1) 2024 DEPRESSION SCREENING 05/15/2024 HIB VACCINE Aged Out No longer eligi ble based on patient's age to complete this topic HPV VACCINE Aged Out No longer eligi ble based on patient's age to complete this topic MENINGOCOCCAL (Group B) VACCINE Aged Out No longer eligible based on patient's age to complete this topic MENINGOCOCCAL VACCINE Aged Out No fortunato dann eligible based on patient's age to complete this topic PNEUMOCOCCAL VACCINE Aged Out No long er eligible based on patient's age to complete this topic
--- OUTSIDE RECORDS SUMMARY | 2024-06-06 22:19 | XMS_ITS | Patient Health Summary ---
Author Organization [facility] Address [address] [facility] [place] [address] Care Team Providers Care Paraprofessional Education Assistant Name Role Phone Unavailable Primary Care Provider Unavailabl e Note from [facility],non-owned Affiliates and Associated Physician Practices is amultiple site organization consisting of ambulatory clinics and hospital sitesin [place], [place], [place] and [place]. This disclosure is being madepursuant to the Care Everywhere program and may not contain all information available regarding this patient. Last updated 18.[facility] Social History Tobacco Use Types Packs/Day Years Used Date Smoking Tobacco: Never Assessed Sex and Gender Information Value Date Recorded Sex Assigned at Not on file Gender Identity Not on file Sexual Orientation Not on file Procedures * DERMATOPATHOLOGY(Performed 08/31/2021) * DERMATOPATHOLOGY(Performed 03/26/2020) * DERMATOPATH TECHNICAL REPORT(Performed 06/11/2018) * DERMATOPATHOLOGY(Performed 11/21/2016) * DERMATOPATHOLOGY(Performed 05/20/2016) * DERMATOPATHOLOGY(Performed 07/23/2015) Results * DERMATOPATHOLOGY (08/31/2021 12:00 AM CDT) Only the most recent of5 resultswithin the time period is included. Case Report Dermatopathology Report ? Case: [id number] ? Authorizing Provider: ??Cookie Acevedo, DO ?? Collected: ? 08/31/2021 12:00 AM ? Ordering Location: ? [facility] Care DermPath Lab ?Received: ?08/31/2021 03:53 PM ? Pathologist: ? Michelle Appiah MD ? Specimens: ?? A) - Skin, right lateral ankle ? B) - Skin, scalp ? 2 4:26 PM CDT DERMATOPATHOLOGY LABORATORY Final Diagnosis Specimen A. SKIN, right lateral ankle: ACTINIC KERATOSIS, PIGMENTED (L57.0) (see microscopic description) Specimen B. SKIN, scalp: VERRUCA VULGARIS (B07.8) 2 4:26 PM CDT DERMATOPATHOLOGY LABORATORY Clinical History A: R/O: Melanoma B: R/O Atypia 2 4:26 PM CDT DERMATOPATHOLOGY LABORATORY Gross Description Specimen A: Received is one formalin filled container labeled with the patient's name and designated right lateral ankle. The specimen consists of a shave biopsy measuring [id number]. Jar 0. Specimen B: Received is one formalin filled container labeled with the patient's name and designated scalp. The specimen consists of a shave biopsy measuring 1p2i4wa and it is bisected. Jar 0. 2 4:26 PM CDT DERMATOPATHOLOGY LABORATORY Microscopic Description Specimen A. SKIN, right lateral ankle: There is alternating orthokeratosis and parakeratosis. Along the undersurface of the epidermis, there are buds of atypical keratinocytes in a disorderly arrangement. There is prominent pigmentation in some of the keratinocytes. The number of melanocytes, highlighted by MART-1/Melan-A immunohistochemical staining, is only mildly increased. Specimen B. SKIN, scalp: There is digitated epidermal hyperplasia, hypergranulosis, vacuolated granular layer cells, and compact hyperorthokeratosis . 2 4:26 PM CDT DERMATOPATHOLOGY LABORATORY Disclaimer An external and internal positive and negative controls are appropriate for the histochemical, immunohistochemical and immunofluorescence stain(s) in this case (if any), except where stated explicitly. The performance characteristics of the stain(s) cited in this report were developed and its performance characteristic determined by the Dermatopathology Laboratory at [facility], directed by Dr. Alis Shepherd. These tests need not be, and therefore are not, approved by the [place] Food and Drug Administration. The tests are used for clinical purposes. Billing Codes Specimen Charges Stain Charges 45106 12218 1 1 05809 1 2 4:26 PM CDT DERMATOPATHOLOGY LABORATORY Embedded Images 2 4:26 PM CDT DERMATOPATHOLOGY LABORATORY Pathology/Cytology TISSUE SPECIMEN FROM SKIN / Unknown 08/31/2021 08/31/2021 3:53 PM CDT Miscellaneous samples (specimen) TISSUE SPECIMEN FROM SKIN / Unknown 08/31/2021 08/31/2021 3:53 PM CDT Cookie Acevedo DO LAB - PATHOLOGY/C YTOLOGY ORDERABLES DERMATOPATHOLOGY LABORATORY [facility] - Department of Dermatology [facility] Medicine [address] [place] [address], [address] [phone] * DERMATOPATH TECHNICAL REPORT (06/11/2018 12:00 AM SPECIAL EFFECTS DESIGNER) Case Report Dermatopathology Report ? Case: [id number] ? Authorizing Provider: ??Vianey Quiroz MD ? Collected: ? 06/11/2018 12:00 AM ? Pathologist: ? Judy Woodard MD ?Received: ?06/13/2018 06:30 AM ? Specimen: ?Skin, right back ? 11:16 AM [facility] DERMATOPATHOLOGY LABORATORY Clinical History Nevus vs other, irritated. 11:16 AM [facility] DERMATOPATHOLOGY LABORATORY Gross Description Specimen A: Received is one formalin filled container labeled with the patient's name and designated right back. The specimen consists of a shave measuring 1l3s5oy. Jar 0. [facility] Dermatopathology Laboratory performed the technical component only. 11:16 AM [facility] DERMATOPATHOLOGY LABORATORY Embedded Images 11:16 AM [facility] DERMATOPATHOLOGY LABORATORY DISCLAIMER An external and internal positive and negative controls are appropriate for the histochemical, immunohistochemical and immunofluorescence stain(s) in this case (if any), except where stated explicitly. The performance characteristics of the stain(s) cited in this report were developed and its performance characteristic determined by the Dermatopathology Laboratory at [facility], directed by Dr. Alis Shepherd. These tests need not be, and therefore are not, approved by the [place] Food and Drug Administration. The tests are used for clinical purposes. 11:16 AM [facility] DERMATOPATHOLOGY LABORATORY Pathology/Cytolog y TISSUE SPECIMEN FROM SKIN / Unknown 06/11/2018 06/13/2018 6:30 AM [facility] Vianey Quiroz MD LAB - PATHOLOGY/CYT OLOGY ORDERABLES DERMATOPATHOLOGY LABORATORY [facility] - Department of Dermatology [address], [address] [place] [address], [facility] [phone]
--- OUTSIDE RECORDS SUMMARY | 2024-06-06 22:19 | XMS_ITS | Clinical Summary ---
Author Organization [facility] Address [address] [place] [address]. [place], [place] [address] [place] [address] Care Team Providers Care Outpatient Scheduler Name Role Phone Unavailable Primary Care Provider Unavailabl e Social History Tobacco Use Types Packs/Day Years Used Date Smoking Tobacco: Never Assessed Comments Unknown Sex and Gender Information Value Date Recorded Sex Assigned at Not on file Legal Sex Female 5:15 PM CDT Gender Identity Not on file Sexual Orientation Not on file Plan of Treatment Health Maintenance Due Date Last Done Comments Cervical Cancer Screening Pa p Smear (Age 30 to 64) Every 3 Years 1966 Colorectal Cancer Screening Colonoscopy (10 Years) 1966 Annual Physical 1969 Hepatitis C 1984 DTaP, Tdap and Td Vaccines ( 1 - Tdap) 1985 Hepatitis B Vaccines (1 of 3 - 19+ 3-dose series) 1985 Cervical Cancer Screening Pa p with HPV Testing (Age 30 to 64) Every 5 Years 1996 Cervical Cancer Screening with HPV 1996 Mammogram Screening 2006 Zoster Vaccines (1 of 2) 2016 COVID-19 Vaccine (2023-2 5 season) 2024 Influenza Adult (#1) 2024 Meningococcal Vaccine Aged Out No fortunato dann eligible based on patient's age to complete this topic Pneumococcal Vaccine: Pediat rics (0 to 5 Years) and At-Risk Patients (6 to 64 Years) Aged Out No longer eligible b ased on patient's age to complete this topic RSV Immunizations Under 20 Months Aged Out No longer eligible based on patient's age to complete this topic
== END 2024-06-05 09:10 | disposition home or self-care (01) ==
LOC: ANHLAB 09:12
PROVIDERS: PCP Internal Medicine; Visit Provider Internal Medicine
DX: Z00.00 Encounter for general adult medical examination without abnormal findings (principal); E03.9 Hypothyroidism, unspecified; E55.9 Vitamin D deficiency, unspecified
CPT/HCPCS: 36415; 80053; 80061; 82306; 84439; 84443; 85025

== ENCOUNTER 2024-07-08 10:15 | Outpatient (CLI) | payer BC, SELFPAY ==
--- NOTE | ~2024-07-08 | MM_ITS ---
EXAMINATION: MM diagnostic marcy RT w shu HISTORY: Six-month follow-up of benign stereotactic biopsy TECHNIQUE: 3-D tomosynthesis images of the right breast were performed and synthetic 2-D images were generated. CAD analysis was submitted and interpreted. COMPARISON: 11/28/2023, 11/21/2023, 06/03/2022 BREAST PARENCHYMAL COMPOSITION:Not Dense. There are scattered areas of fibroglandular density. FINDINGS: No suspicious mass lesion or distortion seen. No suspicious microcalcification. Biopsy parker er clips are present. IMPRESSION: No mammographic evidence for malignancy. BI-RADS Category 2: Benign finding(s). Reviewed, dictated and finalized at location . NERATOR OPERATOR
--- OUTSIDE RECORDS SUMMARY | 2024-07-08 11:38 | XMS_ITS | Encounter Summary ---
Author Organization [facility] Address [address] [facility] [place] [address] Care Team Providers Care Developmental Specialist Name Role Phone Unavailable Primary Care Provider Unavailabl e Encounter Details Date Type Department Care Team (Late st Contact Info) Description 06/13/2018 Lab Requisition [facility] Care DermPath Lab [address] [facility] [address] [place] [phone] Vianey Quiroz MD [address] [facility] [address] [place] [address] Social History Tobacco Use Types Packs/Day Years [...] DERMATOPATH TECHNICAL REPORT Routine 06/11/2018 12:00 AM DAY TREATMENT CLINICIAN/ART THERAPIST documented in this encounter Results * DERMATOPATH TECHNICAL REPORT (06/11/2018 12:00 AM DAY TREATMENT CLINICIAN/ART THERAPIST) Case Report Dermatopathology Report Case: [id number] Authorizing Provider: Vianey Quiroz MD Collected: 06/11/2018 12:00 AM Pathologist: Judy Woodard MD Received: 06/13/2018 06:30 AM Specimen: Skin, right back 9 11:16 AM DAY TREATMENT CLINICIAN/ART THERAPIST DERMATOPATHOLOGY LABORATORY Clinical History Nevus vs other, irritated. 9 11:16 AM DAY TREATMENT CLINICIAN/ART THERAPIST DERMATOPATHOLOGY LABORATORY Gross Description Specimen A: Received is one formalin filled container labeled with the patient's name and designated right back. The specimen consists of a shave measuring 1s2w1jq. Jar 0. [facility] Dermatopathology Laboratory performed the technical component only. 9 11:16 AM DAY TREATMENT CLINICIAN/ART THERAPIST DERMATOPATHOLOGY LABORATORY Embedded Images 9 11:16 AM [facility] DERMATOPATHOLOGY LABORATORY DISCLAIMER An external and internal positive and negative controls are appropriate for the histochemical, immunohistochemical and immunofluorescence stain(s) in this case (if any), except where stated explicitly. The performance characteristics of the stain(s) cited in this report were developed and its performance characteristic determined by the Dermatopathology Laboratory at [facility], directed by Dr. Alis Shepherd. These tests need not be, and therefore are not, approved by the [place] Food and Drug Administration. The tests are used for clinical purposes. 9 11:16 AM [facility] DERMATOPATHOLOGY LABORATORY Pathology/Cytolog y TISSUE SPECIMEN FROM SKIN / Unknown 06/11/2018 06/13/2018 6:30 AM DAY TREATMENT CLINICIAN/ART THERAPIST Vianey Quiroz MD LAB - PATHOLOGY/CYT OLOGY ORDERABLES DERMATOPATHOLOGY LABORATORY [facility] - Department of Dermatology [address] [place] [address], 5th Floor Lab [address] [phone] documented in this encounter Visit Diagnoses Not on filedocumented in this encounter
--- OUTSIDE RECORDS SUMMARY | 2024-07-08 11:38 | XMS_ITS | Encounter Summary ---
Author Organization [facility] Address [address] [facility] [place] [address] Care Team Providers Care Cook Sauce Name Role Phone Unavailable Primary Care Provider Unavailabl e Encounter Details Date Type Department Care Team (Late st Contact Info) Description 03/30/2020 Lab Requisition [facility] DermPath Lab [address] [facility] [facility] [place] [phone] Vianey Quiroz MD [address] [facility] [address] [place] [address] Social History Tobacco Use Types Packs/Day Years [...] Comments DERMATOPATHOLOGY Routine 03/26/2020 12:0 0 AM TERRAZZO JOURNEYMAN documented in this encounter Results * DERMATOPATHOLOGY (03/26/2020 12:00 AM TERRAZZO JOURNEYMAN) Case Report Dermatopathology Report Case: [id number] Authorizing Provider: Vianey Quiroz MD Collected: 03/26/2020 12:00 AM Ordering Location: [facility] DermPath Lab Received: 03/30/2020 10:48 AM Pathologist: Jessica Shepherd MD Specimen: Skin, right wade 0 3:45 PM TERRAZZO JOURNEYMAN DERMATOPATHOLOGY LABORATORY Final Diagnosis Specimen A. SKIN, right wade: SEBORRHEIC KERATOSIS, MACULAR (L82.1) 0 3:45 PM TERRAZZO JOURNEYMAN DERMATOPATHOLOGY LABORATORY Clinical History Lentigo R/O atypia; growing irregular color 0 3:45 PM [facility] DERMATOPATHOLOGY LABORATORY Gross Description Specimen A: Received is one formalin filled container labeled with the patient's name and designated right wade. The specimen consists of a shave biopsy measuring 12x7x1 and 3x1x1 mm. Jar 0. 0 3:45 PM [facility] DERMATOPATHOLOGY LABORATORY Microscopic Description Specimen A. SKIN, right wade: Sections show a relatively broad, flat proliferation of small keratinocytes. The surface is gently papillated, and there is increased basilar pigmentation. 0 3:45 PM [facility] DERMATOPATHOLOGY LABORATORY Disclaimer An external and internal positive and negative controls are appropriate for the histochemical, immunohistochemical and immunofluorescence stain(s) in this case (if any), except where stated explicitly. The performance characteristics of the stain(s) cited in this report were developed and its performance characteristic determined by the Dermatopathology Laboratory at [facility], directed by Dr. Alis Shepherd. These tests need not be, and therefore are not, approved by the [place] Food and Drug Administration. The tests are used for clinical purposes. Billing Codes Specimen Charges Stain Charges 16287 1 0 3:45 PM [facility] DERMATOPATHOLOGY LABORATORY Embedded Images 0 3:45 PM [facility] DERMATOPATHOLOGY LABORATORY Pathology/Cytolog y TISSUE SPECIMEN FROM SKIN / Unknown 03/26/2020 03/30/2020 10:48 AM TERRAZZO JOURNEYMAN Vianey Quiroz MD LAB - PATHOLOGY/CYT OLOGY ORDERABLES DERMATOPATHOLOGY LABORATORY [facility] - Department of Dermatology [address], [address] [phone] documented in this encounter Visit Diagnoses Not on filedocumented in this encounter
--- OUTSIDE RECORDS SUMMARY | 2024-07-08 11:38 | XMS_ITS | Data Portability ---
Author Organization [facility] [place] Address [address] [place] [address] Care Team Providers Care Drying Machine Back Tender Name Role Phone MARIELY VILLAN Primary Care Provider [phone] Assessment Encounter Date Assessment Date Assessment LastModified [...] eral No observ ation record ed. aruehrup [facility] [address], [place], [address], 03/02/2021 18:30:40 06/03/19 23 06/03/2022 MAMMO , scree valerie, bilat eral No observ ation record ed. MANUEL [facility] [address], [place], [address], 06/22/2022 05:20:06 Result Notes None recorded. Problems Name Problem SNOMED Code Status Onset Date Resolution Date Notes Provider Name and Address Organization Details Recorded Time Screenin g for malignan t neoplasm of rectum Completed 201503/01/2021 Encounter for screening for malignant neoplasm of rectum;Re corded Elsewhere : No Locati on: [facility] So urce: EHR Chron ic: N Practic e ID: 0001 Bill able Time: 10:00:00 AM Maxine [facility]ford [facility] 17:13:31 Tinea corporis [id number] Completed 201503/01/2021 Tinea corporis; Recorded Elsewhere : No Locati on: [facility] So urce: EHR Chron ic: N Practic e ID: 0001 Bill able Time: 10:00:00 AM [facility]ine [facility] 17:13:[address] Concept Completed 201803/01/2021 Encntr for general adult medical exam w/o abnormal findings; Recorded Elsewhere : No Locati on: [facility] So urce: EHR Chron ic: N Practic e ID: 0001 Bill able Time: 09:30:00 AM [facility] 17:13:32 Increase d frequenc y of urinatio n [id number] Completed 201303/01/2021 Urinary frequency ;Recorded Elsewhere : No Locati on: [facility] So urce: EHR Chron ic: N Practic e ID: 0001 Bill able Time: 11:00:00 AM [facility]ine [facility] 17:13:[address] Concept Completed 201503/01/2021 Encntr for testing analyst exam (general) (routine) w/o abn findings; Recorded Elsewhere : No Locati on: [facility] So urce: EHR Chron ic: N Practic e ID: 0001 Bill able Time: 10:00:00 AM [facility] 17:13:34 Blood in urine [id number] Completed 201303/01/2021 HEMATURIA NOS;Recor ded Elsewhere : No Locati on: [facility] So urce: EHR Chron ic: N Practic e ID: 0001 Bill able Time: 03:59:58 PM Maxine Huang [facility] 17:13:22 Speciali zed medical examinat ion Completed 201303/01/2021 Gynecolog ical Examinati on;Record ed Elsewhere : No Locati on: [facility] So urce: EHR Chron ic: N Practic e ID: 0001 Bill able Time: 11:00:00 AM [facility] 17:13:35 Female genital organ symptoms [id number] Completed 201303/01/2021 Pelvic pain;Alon rded Elsewhere : No Locati on: [facility] So urce: EHR Chron ic: N Practic e ID: 0001 Bill able Time: 11:00:00 AM Maxine Huang [facility] 17:13:25 Adult health examinat ion Completed 201303/01/2021 ROUTINE MEDICAL EXAM;Alon rded Elsewhere : No Locati on: [facility] So urce: EHR Chron ic: N Practic e ID: 0001 Bill able Time: 11:00:00 AM [facility]ine [facility] 17:13:20 Screenin g for malignan t neoplasm of cervix Completed 201103/01/2021 Screening for malignant neoplasms of the cervix;Re corded Elsewhere : No Locati on: [facility] So urce: EHR Chron ic: N Practic e ID: 0001 Bill able Time: 10:00:00 AM [facility] 17:13:29 Radiolog ic finding [id number] Completed 201803/01/2021 Oth abn and inconclus placido findings on dx imaging of breast;Re corded Elsewhere : No Locati on: [facility] So urce: EHR Chron ic: N Practic e ID: 0001 Bill able Time: 08:19:09 AM [facility] 17:13:23 Microsco pic hematuri a [id number] Completed 201303/01/2021 HEMATURIA MICROSCOP IC;Practi ce ID: 0001 [facility] 17:13:28 Problem Notes None recorded. Procedures Surgical History Date Name Laterality Status Provider Name and Address Organization Details Recorded Time 03/02/20 21 Date of Last Mammogram completed [facility] 03/02/2021 15:08:53 04/17/20 17 Date of Last Pap Smear completed [facility] 03/01/2021 17:18:32 05/15/18 97 Total Hysterectomy completed [facility] 03/01/2021 17:17:23 05/15/18 94 Tubal Ligation completed [facility] 03/01/2021 17:17:08 dilation of pyloric stenosis using fluoroscopic guidance completed Ese Swan, [facility]- [address], [place], [address], [facility] 03/02/2021 15:22:04 Imaging Results Imaging Date Name Status LastModified by [facility] Details LastModified Time 03/02/2021 MAMMO, screening, bilateral completed purvi[facility]hr[facility] [address], [place], [address], 03/02/2021 18:30:40 06/03/2022 MAMMO, screening, bilateral active MANUEL [facility] [address], [place], [address], 06/22/2022 05:20:06 Procedure Notes None recorded. Medical [...] Prescrib ed Elsewher e: No Locat ion: [facility] odify By: liban mishra DateTime : 09/18/19 01:40:38 PM Not Available Not Available Not Available sulfameth azine (bulk) powder 10/20 completed Prescrib ed Elsewher e: Yes Loca tion: [facility] odify By: edil lopes DateTime : 09/21/19 [...] Prescrib ed Elsewher e: No Locat ion: [facility] odify By: edil lopes DateTime : 10/21/19 16 10:00:00 AM Not Available Not Available Not Available Vitamin D2 1,250 mcg (50,000 unit) capsule take 1 capsule by oral route every week 03/02 completed Prescrib ed Elsewher e: No Locat ion: [facility] odify By: starr lopes DateTime : 11/23/19 08:25:52 AM Not Available Not Available Not Available ketoconaz ole 2 % topical cream apply by topical route every day to the affected area(s) 04/17 completed Prescrib ed Elsewher e: No Locat ion: Kassy morrissey [facility] odify By: edil Morrissey ncounter DateTime : 10/21/19 16 10:00:00 AM Not Available Not Available Not Available Stanback Headache Powder 650 mg oral packet 03/02 completed Prescrib ed Elsewher e: Yes Loca tion: [facility] odify By: starr Morrissey ncounter DateTime : 09/21/19 12 10:00:00 AM Not Available Not Available Not Available Calcio Mayi 500 mg tablet 03/02 completed Prescrib ed Elsewher e: Yes Loca tion: [facility] odify By: starr Morrissey ncounter DateTime [...] Updated DateTime 03/02/2021 163.83 cm 40.4 kg/m2 294955.5 8 g 122 mm[Hg] 78 mm[Hg] Maxine [facility] 15:08:16 Social History Question Answer Notes LastModified by Organizat ion Details LastModified Time Tobacco Smoking Status Never Smoker [facility] 03/01/2021 17:16:36 What Is Your Level [...] Anxious, Or Unable To Sleep At Night)? [id number] Information not available 03/01/2021 Do You Use [...] ) N Other N Drug/Latex Allergies/Reactions N Blood Transfusion N Breast Cancer N Dermatologic Disorders N Lung Disease N Defects or Inherited Disease N Breast Problem N Gestational Diabetes N Hematologic disorders N Anesthesia Complications N History of STI N Deep Vein Thrombosis N Polycystic ovary syndrome N Anxiety Disorder N Autoimmune disease N Arthritis N Polyps N Infertility N Acid Reflux (GERD) N History of abnormal pap N Cancer N Varicosities N Stroke N Neurologic/Epilepsy N Endometriosis N High Cholesterol N Fibromyalgia N Headaches N Kidney Disease N Heart Problems N [...] SNOMED-CT Code Diagnosis ICD10 Code Diagnosis Note [id number] Ese Swan [facility] [address] [address] 03/02/2021 14:33:51 03/02/2021 15:39:25 Gynecologic examination [id number] Z01.419 Take Calcium with Vitamin D 12-1500mg daily. Do monthly self breast exams. It is advised to get annual flu shot in the fall and she could obtain at [facility] or [facility] clinic. If you haven't received the Tdap [...] indicated. Family his tory of breast cancer [id number] Z80.3 Z80.0 Family history of colon & [...] Mohan Member ID Guarantor Name 03/02/2021 1 [facility]: (PPO) [id number] Yovani Wong Tiffani [id number] Notes Date Note Type Note Provider Name and Address Organization Details Recorded Time 03/02/2021 text/html Annual Medical Claims Specialist Post-MenopausalRe ported bypatient.Menopau murali Symptoms:no menopausal symptoms; [...] year; history of recent colonoscopy Ese Swan, [facility]- [address], [place], [address], [place] [facility] 03/02/2021 15:37:41 OBGyn Episode Ob Episode Information Episode Created Date Number of Fetuses Patient Bloodtype Patient rh Status Prepregnancy Weight lbs Domestic Partner Domestic Partner Phone Father Name Oil Well Fishing Tool Operator Status 03/01/20 21 1 CLOSED Fetus Data First Name Last Name Admitted to NICU Weight (g) Sex Living Outcome Pediatric Complications Fetus ID Race Codes Race Delivery Type F [id number] Vaginal Delivery Ayad Calculation Initial Ayad Date [...] Domestic Partner Domestic Partner Phone Father Name Oil Well Fishing Tool Operator Status 03/01/20 21 1 CLOSED Fetus Data First Name Last Name Admitted to NICU Weight (g) Sex Living Outcome Pediatric Complications Fetus ID Race Codes Race Delivery Type F [id number] Vaginal Delivery Ayad Calculation Initial Ayad Date [...]
--- OUTSIDE RECORDS SUMMARY | 2024-07-08 11:38 | XMS_ITS | Clinical Summary ---
Author Organization [facility] Address [address] [place] [address] Care Team Providers Care Higher Education Administrator Name Role Phone Unavailable Primary Care Provider Unavailabl e Source Comments [facility] [employer],non-owned Affiliates and Associated Physician Practices is amultiple site organization consisting of ambulatory clinics and hospital sitesin [place], [place], [place] and [place]. This disclosure is being madepursuant to the Care Everywhere program and may not contain all information available regarding this patient. Last updated 18.[facility] [employer] Social History Tobacco Use Types Packs/Day Years [...]
--- OUTSIDE RECORDS SUMMARY | 2024-07-08 11:38 | XMS_ITS | Clinical Summary ---
Author Organization [facility] Address [facility] [place] [address] Care Team Providers Care Mold Maker Apprentice Name Role Phone Unavailable Primary Care Provider [...] season) 2024 Influenza Adult (#1) 2024 Meningococcal B Vaccine Aged Out No l onger eligible based on patient's age to complete this topic Meningococcal Vaccine Aged Out No fortunato dann [...]
--- OUTSIDE RECORDS SUMMARY | 2024-07-08 11:38 | XMS_ITS | Referral Summary ---
Author Organization [facility] Address [address] [place] [address] Care Team Providers Care Apparel Sales Associate Name Role Phone Unavailable Primary Care Provider Unavailabl e Source Comments [facility],non-owned Affiliates and Associated Physician Practices is amultiple site organization consisting of ambulatory clinics and hospital sitesin [place], [place], [place] and [place]. This disclosure is being madepursuant to the Care Everywhere program and may not contain all information available regarding this patient. Last updated 18.[facility] [employer] Social History Tobacco Use Types Packs/Day Years Used Date Smoking Tobacco: Never Assessed Sex and Gender Information Value Date Recorded Sex Assigned at Not on file Gender Identity Not on file Sexual Orientation Not on file Plan of Treatment Not on file
--- OUTSIDE RECORDS SUMMARY | 2024-07-08 11:38 | XMS_ITS | Patient Health Summary ---
Author Organization [facility] Address [address] [place] [address] Care Team Providers Care Mainframe Analyst Name Role Phone Unavailable Primary Care Provider Unavailabl e Note from [facility],non-owned Affiliates and Associated Physician Practices is amultiple site organization consisting of ambulatory clinics and hospital sitesin [place], [place], [place]. This disclosure is being madepursuant to the Care Everywhere program and may not contain all information available regarding this patient. Last updated 18.[facility] Social History Tobacco Use Types Packs/Day Years [...] period is included. Case Report Dermatopathology Report Case: [id number] Authorizing Provider: Cookie Acevedo DO Collected: 08/31/2021 12:00 AM Ordering Location: [facility] DermPath Lab Received: 08/31/2021 03:53 PM Pathologist: Michelle Appiah MD Specimens: A) - Skin, right lateral ankle B) - Skin, scalp 4:26 PM CDT DERMATOPATHOLOGY LABORATORY Final Diagnosis Specimen A. SKIN, right lateral ankle: ACTINIC KERATOSIS, PIGMENTED (L57.0) (see microscopic description) Specimen B. SKIN, scalp: VERRUCA VULGARIS (B07.8) 2 4:26 PM T DERMATOPATHOLOGY LABORATORY Clinical History A: R/O: Melanoma B: R/O Atypia 2 4:26 PM CDT DERMATOPATHOLOGY LABORATORY Gross Description Specimen A: Received is one formalin filled container labeled with the patient's name and designated right lateral ankle. The specimen consists of a shave biopsy measuring [id number]. Jar 0. Specimen B: Received is one formalin filled container labeled with the patient's name and designated scalp. The specimen consists of a shave biopsy measuring 9m1n7zh and it is bisected. Jar 0. 2 4:26 PM T DERMATOPATHOLOGY LABORATORY Microscopic Description Specimen A. SKIN, [...] characteristic determined by the Dermatopathology Laboratory at [facility], directed by Dr. Alis Shepherd. These tests need not be, and therefore are not, approved by the [place] Food and Drug Administration. The tests are used for clinical purposes. Billing Codes Specimen Charges Stain Charges 01444 12661 1 1 94672 1 2 4:26 PM CDT DERMATOPATHOLOGY LABORATORY Embedded Images 2 4:26 PM CDT DERMATOPATHOLOGY LABORATORY Pathology/Cytology TISSUE SPECIMEN FROM SKIN / Unknown 08/31/2021 08/31/2021 3:53 PM CDT Miscellaneous samples (specimen) TISSUE SPECIMEN FROM SKIN / Unknown 08/31/2021 08/31/2021 3:53 PM CDT Cookie Acevedo DO LAB - PATHOLOGY/C YTOLOGY ORDERABLES DERMATOPATHOLOGY LABORATORY [facility] Department of Dermatology [address], [address] [phone] * DERMATOPATH TECHNICAL REPORT (06/11/2018 12:00 AM [facility]) Case Report Dermatopathology Report Case: [id number] Authorizing Provider: Vianey Quiroz MD Collected: 06/11/2018 12:00 AM Pathologist: Judy Woodard MD Received: 06/13/2018 06:30 AM Specimen: Skin, right back 11:16 AM [facility] DERMATOPATHOLOGY LABORATORY Clinical History Nevus vs other, irritated. 11:16 AM [facility] DERMATOPATHOLOGY LABORATORY Gross Description Specimen A: Received is one formalin filled container labeled with the patient's name and designated right back. The specimen consists of a shave measuring 0u7d6pf. Jar 0. [facility] Dermatopathology Laboratory performed the technical component [...] characteristic determined by the Dermatopathology Laboratory at [facility], directed by Dr. Alis Shepherd. These tests need not be, and therefore are not, approved by the [place] Food and Drug Administration. The tests are used for clinical purposes. 9 11:16 AM [facility] DERMATOPATHOLOGY LABORATORY Pathology/Cytolog y TISSUE SPECIMEN FROM SKIN / Unknown 06/11/2018 06/13/2018 6:[address] [facility] Vianey Quiroz MD LAB - PATHOLOGY/CYT OLOGY ORDERABLES DERMATOPATHOLOGY LABORATORY [facility] - Department of Dermatology [address] [place] [address], [address]th Floor Lab B [address] [phone]
--- OUTSIDE RECORDS SUMMARY | 2024-07-08 11:38 | XMS_ITS | Clinical Summary ---
Author Organization [facility] Address [address] [place] [address] Care Team Providers Care Fruit Sprayer Name Role Phone Unavailable Primary Care Provider Unavailabl e Allergies No known active allergies Medications atorvastatin (LIPITOR) 10 mg tablet 08/08/2018 Active VITAMIN D2 50,000 unit capsule 09/17/2018 Active levothyroxine 25 mcg tablet 09/17/2018 Active spironolactone (ALDACTONE) 25 mg tablet 09/19/2018 Active spironolactone (ALDACTONE) 100 mg tablet Take 100 mg by mouth daily. Active BABY ASPIRIN ORAL Take 81 mg by mouth. Active Active Problems Problem Noted Date Diagnosed Date Abnormal mammogram of right breast 10/09/2018 Family History Medical History Relation Name Comments Colon Cancer Father Lung Cancer Father Breast Cancer Maternal Aunt Relation Name Status Comments Father Maternal Aunt Social History Tobacco Use Types Packs/Day Years Used Date Smoking Tobacco: Never Smokeless Tobacco: Never Comments No Sex and Gender Information Value Date Recorded Sex Assigned at Not on file Legal Sex Female 3:42 PM CDT Gender Identity Not on file Sexual Orientation Not on file Last Filed Vital Signs Vital Sign Reading Time Taken Comments Blood Pressure 117/71 10/09/2018 11:24 AM CDT Pulse 79 10/09/2018 11:24 AM CDT Temperature - - Respiratory Rate - - Oxygen Saturation - - Inhaled Oxygen Concentration - - Weight 109.8 kg (242 lb) 10/09/2018 11:24 AM CDT Height 167.6 cm (5' 6 ) 10/09/2018 11:24 AM CDT Body Mass Index 39.06 10/09/2018 11:24 AM CDT Plan of Treatment Health Maintenance Due Date Last Done Comments DTAP/TDAP/TD VACCINES (1 - Tdap) 1985 HEPATITIS B VACCINES (1 of 3 - 19+ 3-dose series) 1985 CERVICAL CANCER SCREENING 1996 COLORECTAL SCREENING 2011 Colorectal Cancer Screening 2011 FIT-DNA Q 3 years 2011 FIT/FOBT Q 1 year 2011 Flex Sig/CT Colonography Q 5 years 2011 ZOSTER VACCINE (1 of 2) 2016 BREAST CANCER SCREENING 09/15/2019 09/15/19 19, 09/11/2018, 04/17/2017, Additional history exists INFLUENZA VACCINE (#1) 2023 Procedures Procedure Name Priority Date/Time Associated Diagnosis Comments MAMMO DIAGNOSTIC UNI RIGHT W OR WO CAD Routine 09/14/2018 from Last 3 Months or Most Recently Relevant to Health Maintenance Results * (ABNORMAL) MAMMO DIAGNOSTIC UNI RIGHT W OR WO CAD (09/14/2018) Anatomical Region Laterality Modality Breast Right Other [facility] ANDERS[facility] MAMMO ORDERABLES Edited Resu lt - Final from Last 3 Months or Most Recently Relevant to Health Maintenance Insurance BLUE ACCESS/TRUE BLUE PPO
== END 2024-07-08 10:16 | disposition home or self-care (01) ==
LOC: ANHIMG 10:21
PROVIDERS: PCP Internal Medicine; Visit Provider Internal Medicine
DX: R92.8 Other abnormal and inconclusive findings on diagnostic imaging of breast (principal)
CPT/HCPCS: 77061; 77065; G0279

== ENCOUNTER 2024-11-26 10:28 | Outpatient (CLI) | payer BC, OTHER, SELFPAY ==
--- NOTE | ~2024-11-26 | MM_ITS ---
EXAMINATION: MM screening marcy BI w shu HISTORY: Screening TECHNIQUE: Craniocaudal and mediolateral oblique 3-D tomosynthesis images were obtained and synthetic 2-D images were generated. CAD analysis was submitted and interpreted. COMPARISON: Comparison to multiple prior studies sequentially, with oldest reviewed study dated 10/2019. BREAST PARENCHYMAL COMPOSITION: Dense: The breasts are heterogeneously dense, which may obscure small masses FINDINGS: Bilateral breast calcifications are not significantly changed. There is no evidence of susp icious mass, calcification, or architectural distortion to suggest malignancy in either breast. There has been no suspicious interval change. IMPRESSION: 1. No mammographic evidence of malignancy. 2. Recommend routine screening mammography in one year. BI-RADS Category 2: Benign finding(s). Reviewed, dictated and finalized at location B.
== END 2024-11-26 10:29 | disposition home or self-care (01) ==
LOC: MICIMG 10:29
PROVIDERS: PCP Internal Medicine; Visit Provider Internal Medicine
DX: Z12.31 Encounter for screening mammogram for malignant neoplasm of breast (principal)
CPT/HCPCS: 77063; 77067

== ENCOUNTER 2025-03-14 00:21 | Day surgery (SDC) | payer BC, SELFPAY ==
[2025-03-04 15:07] VITALS: BMI 41.5
--- OUTSIDE RECORDS SUMMARY | 2025-03-14 00:23 | XMS_ITS | Clinical Summary ---
Author Organization [facility] Address [address] [place] [address] Care Team Providers Care Mechanical Supervisor Name Role Phone Unavailable Primary Care Provider [...] 11:24 AM CDT Height 167.6 cm (5' 6) 10/09/2018 11:24 AM CDT Body Mass Index 39.06 10/09/2018 11:24 AM CDT Plan of Treatment Health Maintenance Due Date Last Done Comments DTAP/TDAP/TD VACCINES (1 - Tdap) 1985 HEPATITIS B VACCINES (1 of 3 - 19+ 3-dose series) 1985 HPV/Cotest (21-29) 1987 CERVICAL CANCER SCREENING 1996 HPV/Cotest (30-65) 1996 PAP SMEAR 1996 COLORECTAL SCREENING 2011 Colorectal Cancer Screening 2011 FIT-DNA Q 3 years 2011 FIT/FOBT Q 1 year 2011 Flex Sig/CT Colonography Q 5 years 2011 ZOSTER VACCINE (1 of 2) 2016 BREAST CANCER SCREENING 09/15/2019 09/15/19 19, 09/11/2018, 04/17/2017, Additional history exists INFLUENZA VACCINE (#1) 2024 Procedures Procedure Name Priority Date/Time Associated Diagnosis Comments MAMMO DIAGNOSTIC UNI RIGHT W OR WO CAD Routine 09/14/2018 from Last 3 Months or Most Recently Relevant to Health Maintenance Results * (ABNORMAL) MAMMO DIAGNOSTIC UNI RIGHT W OR WO CAD (09/14/2018) Anatomical Region Laterality Modality Breast Right Mammography us [facility] ANDERSEN MAMMO ORDERABLES Edited Resu lt - Final from Last 3 Months or Most Recently Relevant to Health Maintenance Insurance BS BLUE ACCESS/TRUE BLUE PPO
--- OUTSIDE RECORDS SUMMARY | 2025-03-14 00:24 | XMS_ITS | Clinical Summary ---
Author Organization [facility] Address [address] [place] [address] Care Team Providers Care Parking Analyst Name Role Phone Unavailable Primary Care Provider Unavailabl e Source Comments [facility] [employer],non-owned Affiliates and Associated Physician Practices is amultiple site organization consisting of ambulatory clinics and hospital sitesin [place], [place], [place] and [place]. This disclosure is being madepursuant to the Care Everywhere program and may not contain all information available regarding this patient. Last updated 18.[facility] [employer] Social History Tobacco Use Types Packs/Day Years Used Date Smoking Tobacco: Never Assessed Comments Unknown Sex and Gender Information Value Date Recorded Sex Assigned at Not on file Legal Sex Female 5:34 PM STONE DRILLER Gender Identity Not on file Sexual Orientation [...] 2016 ZOSTER VACCINE (1 of 2) 2016 DEPRESSION SCREENING 05/15/2024 COVID-19 VACCINE ( - 2023-2 5 season) 2025 INFLUENZA VACCINE (#1) 2025 HIB VACCINE Aged Out No longer eligi ble based on patient's age to complete this topic HPV VACCINE Aged Out No longer eligi ble based on patient's age to complete this topic MENINGOCOCCAL (Group B) VACC INE SHARED DECISION-MAKING Aged Out No longer eligibl e based on patient's age to complete this topic MENINGOCOCCAL GROUPS A/C/Y/W VACCINE Aged Out No longer eligible b ased on patient's age to complete this topic Insurance SELF PAY NO INSURANCE Member Subscriber Plan / Payer (Ef fective for All Dates) Name:Danielle Nixon Member ID:Not on file Relation to Subscriber:Not on file Name:DANIELLE NIXON Subscriber ID:Not on file (Home) Address: [address] [place] [address] Payer ID:Not on file Group ID:Not on file Type:Self Pay Address: [facility]
--- OUTSIDE RECORDS SUMMARY | 2025-03-14 00:24 | XMS_ITS | Clinical Summary ---
Author Organization [facility] Address [address] [place] [address] Care Team Providers Care Accounting File Clerk Name Role Phone Unavailable Primary Care Provider [...] Screening with HPV 1996 Mammogram Screening 2006 Pneumococcal Vaccine: 50+ Ye ars (1 of 1 - PCV) 2016 Zoster Vaccines (1 of 2) 2016 COVID-19 Vaccine (2024-2 6 season) 2025 Influenza Adult (#1) 2025 Hepatitis A Vaccines Aged Out No long er eligible based on patient's age to complete this topic Meningococcal B Vaccine Aged Out No l onger eligible based on patient's age to complete this topic Meningococcal Vaccine Aged Out No fortunato dann eligible based on patient's age to complete this topic RSV Immunizations Under 20 Months Aged Out No longer eligible based on patient's age to complete this topic
--- OUTSIDE RECORDS SUMMARY | 2025-03-14 00:24 | XMS_ITS | Encounter Summary ---
Author Organization [facility] Address [address] [facility] [place] [address] Care Team Providers Care Lacquer Pin Press Operator Name Role Phone Unavailable Primary Care Provider Unavailabl e Encounter Details Date Type Department Care Team (Late st Contact Info) Description 03/30/2020 Lab Requisition [facility] DermPath Lab [address] [facility], [facility] [place] [phone] Vianey Quiroz MD [address] [facility] [address] [place] [address] Social History Tobacco Use Types Packs/Day Years Used Date Smoking Tobacco: Never Assessed Comments Unknown Sex and Gender Information Value Date Recorded Sex Assigned at Not on file Legal Sex Female 5:34 PM PEANUT BLANCHER Gender Identity Not on file Sexual Orientation Not on file documented as of this encounter Plan of Treatment Not on file documented as of this encounter Procedures Procedure Name Priority Date/Time Associated Diagnosis Comments DERMATOPATHOLOGY Routine 03/26/2020 12:0 0 AM PEANUT BLANCHER documented in this encounter Results * DERMATOPATHOLOGY (03/26/2020 12:00 AM PEANUT BLANCHER) Case Report Dermatopathology Report Case: [id number] Authorizing Provider: Vianey Quiroz MD Collected: 03/26/2020 12:00 AM Ordering Location: [facility] Care DermPath Lab Received: 03/30/2020 10:48 AM Pathologist: Jessica Shepherd MD Specimen: Skin, right wade 0 3:45 PM PEANUT BLANCHER DERMATOPATHOLOGY LABORATORY Final Diagnosis Specimen A. SKIN, right wade: SEBORRHEIC KERATOSIS, MACULAR (L82.1) 0 3:45 PM PEANUT BLANCHER DERMATOPATHOLOGY LABORATORY at [address] Clinical History Lentigo R/O atypia; growing irregular color 0 3:45 PM [facility]ANUT [facility]ANCHER DERMATOPATHOLOGY LABORATORY Gross Description Specimen A: Received is one formalin filled container labeled with the patient's name and designated right wade. The specimen consists of a shave biopsy measuring 12x7x1 and 3x1x1 mm. Jar 0. 0 3:45 PM [facility] DERMATOPATHOLOGY LABORATORY Microscopic Description Specimen A. SKIN, right wade: Sections show a relatively broad, flat proliferation of small keratinocytes. The surface is gently papillated, and there is increased basilar pigmentation. 0 3:45 PM [facility] DERMATOPATHOLOGY LABORATORY Disclaimer An external and internal positive and negative controls are appropriate for the histochemical, immunohistochemical and immunofluorescence stain(s) in this case (if any), except where stated explicitly. The performance characteristics of the stain(s) cited in this report were developed and its performance characteristic determined by the Dermatopathology Laboratory at [facility], directed by Dr. Alis Shepherd. These tests need not be, and therefore are not, approved by the [place] Food and Drug Administration. The tests are used for clinical purposes. Billing Codes Specimen Charges Stain Charges 21322 1 0 3:45 PM PEANUT BLANCHER DERMATOPATHOLOGY LABORATORY Embedded Images 0 3:45 PM [facility] DERMATOPATHOLOGY LABORATORY Pathology/Cytolog y TISSUE SPECIMEN FROM SKIN / Unknown 03/26/2020 03/30/2020 10:48 AM PEANUT BLANCHER Vianey Quiroz MD LAB - PATHOLOGY/CYTOLOGY OR DERABLES Final Result DERMATOPATHOLOGY LABORATORY [facility] - Department of Dermatology [address] [place] [address], [facility] [phone] documented in this encounter Visit Diagnoses Not on filedocumented in this encounter
--- OUTSIDE RECORDS SUMMARY | 2025-03-14 00:24 | XMS_ITS | Encounter Summary ---
Author Organization [facility] Address [address] [address] Care Team Providers Care Line Camera Operator Name Role Phone Unavailable Primary Care Provider Unavailabl e Encounter Details Date Type Department Care Team (Late st Contact Info) Description 06/13/2018 Lab Requisition [facility] Care DermPath Lab [address] [facility] [place] [phone] Vianey Quiroz MD [address] [facility] [address] [place] [address] Social History Tobacco Use Types Packs/Day Years Used Date Smoking Tobacco: Never Assessed Comments Unknown Sex and Gender Information Value Date Recorded Sex Assigned at Not on file Legal Sex Female 5:34 PM REVERSE UNIT OPERATOR Gender Identity Not on file Sexual Orientation Not on file documented as of this encounter Plan of Treatment Not on file documented as of this encounter Procedures Procedure Name Priority Date/Time Associated Diagnosis Comments DERMATOPATH TECHNICAL REPORT Routine 06/11/2018 12:00 AM REVERSE UNIT OPERATOR documented in this encounter Results * DERMATOPATH TECHNICAL REPORT (06/11/2018 12:00 AM REVERSE UNIT OPERATOR) Case Report Dermatopathology Report Case: [id number] Authorizing Provider: Vianey Quiroz MD Collected: 06/11/2018 12:00 AM Pathologist: Judy Woodard MD Received: 06/13/2018 06:30 AM Specimen: Skin, right back 9 11:16 AM REVERSE UNIT OPERATOR DERMATOPATHOLOGY LABORATORY Clinical History Nevus vs other, irritated. 9 11:16 AM REVERSE UNIT OPERATOR DERMATOPATHOLOGY LABORATORY Gross Description Specimen A: Received is one formalin filled container labeled with the patient's name and designated right back. The specimen consists of a shave measuring 5u0u9ou. Jar 0. [facility] Dermatopathology Laboratory performed the technical component only. 11:16 AM [facility] DERMATOPATHOLOGY LABORATORY Embedded Images 11:16 AM [facility] DERMATOPATHOLOGY LABORATORY DISCLAIMER An external and internal positive and negative controls are appropriate for the histochemical, immunohistochemical and immunofluorescence stain(s) in this case (if any), except where stated explicitly. The performance characteristics of the stain(s) cited in this report were developed and its performance characteristic determined by the Dermatopathology Laboratory at [facility], directed by Dr. Alis Shepherd. These tests need not be, and therefore are not, approved by the [place] Food and Drug Administration. The tests are used for clinical purposes. 11:16 AM [facility] DERMATOPATHOLOGY LABORATORY at [address] REVERSE UNIT OPERATOR Pathology/Cytolog y TISSUE SPECIMEN FROM SKIN / Unknown 06/11/2018 06/13/2018 6:30 AM REVERSE UNIT OPERATOR Vianey Quiroz MD LAB - PATHOLOGY/CYTOLOGY OR DERABLES Final Result DERMATOPATHOLOGY LABORATORY [facility] - Department of Dermatology [address] [facility], [address]th [place] [address], [facility] [phone] documented in this encounter Visit Diagnoses Not on filedocumented in this encounter
--- OUTSIDE RECORDS SUMMARY | 2025-03-14 00:24 | XMS_ITS | Data Portability ---
Author Organization [facility] [place] Address [address] [place] [address] Care Team Providers Care Dye Worker Name Role Phone ALLENCAROLINE Primary Care Provider Assessment Encounter Date Assessment Date Assessment LastModified [...] eral No observ ation record ed. aruehrup [facility] [address], [place], [address], 03/02/2021 18:30:40 06/03/19 23 06/03/2022 MAMMO , scree valerie, bilat eral No observ ation record ed. [facility] [address], [place], [address], 02/25/2025 17:14:45 Result Notes None recorded. Problems Name Problem SNOMED Code Status Onset Date Resolution Date Notes Provider Name and Address Organization Details Recorded Time Screenin g for malignan t neoplasm of cervix Completed 201103/01/2021 Screening for malignant neoplasms of the cervix;Re corded Elsewhere : No Locati on: [facility] So urce: EHR Chron ic: N Practic e ID: 0001 Bill able Time: 10:00:00 AM Maxine [facility] 1 17:13:29 Increase d frequenc y of urinatio n [id number] Completed 201303/01/2021 Urinary frequency ;Recorded Elsewhere : No Locati on: [facility] So urce: EHR Chron ic: N Practic e ID: 0001 Bill able Time: 11:00:00 AM [facility] 17:13:26 Speciali zed medical examinat ion Completed 201303/01/2021 Gynecolog ical Examinati on;Record ed Elsewhere : No Locati on: [facility] So urce: EHR Chron ic: N Practic e ID: 0001 Bill able Time: 11:00:00 AM [facility] 17:13:35 Female genital organ symptoms [id number] Completed 201303/01/2021 Pelvic pain;Alon rded Elsewhere : No Locati on: [facility] So urce: EHR Chron ic: N Practic e ID: 0001 Bill able Time: 11:00:00 AM [facility] 17:13:25 Adult health examinat ion Completed 201303/01/2021 ROUTINE MEDICAL EXAM;Alon rded Elsewhere : No Locati on: [facility] So urce: EHR Chron ic: N Practic e ID: 0001 Bill able Time: 11:00:00 AM [facility] 17:13:20 Microsco pic hematuri a [id number] Completed 201303/01/2021 HEMATURIA MICROSCOP IC;Practi ce ID: 0001 Maxine Huang [facility] 17:13:28 Blood in urine [id number] Completed 201303/01/2021 HEMATURIA NOS;Recor ded Elsewhere : No Locati on: [facility] So urce: EHR Chron ic: N Practic e ID: 0001 Bill able Time: 03:59:58 PM Maxine Huang [facility] 17:13:22 Screenin g for malignan t neoplasm of rectum Completed 201503/01/2021 Encounter for screening for malignant neoplasm of rectum;Re corded Elsewhere : No Locati on: [facility] So urce: EHR Chron ic: N Practic e ID: 0001 Bill able Time: 10:00:00 AM [facility] 17:13:31 Tinea corporis [id number] Completed 201503/01/2021 Tinea corporis; Recorded Elsewhere : No Locati on: [facility] So urce: EHR Chron ic: N Practic e ID: 0001 Bill able Time: 10:00:00 AM Maxine Huang [facility] 17:13:[address] Concept Completed 201503/01/2021 Encntr for store clerk checker exam (general) (routine) w/o abn findings; Recorded Elsewhere : No Locati on: [facility] So urce: EHR Chron ic: N Practic e ID: 0001 Bill able Time: 10:00:00 AM Maxine [facility] 17:13:[address] Concept Completed 201803/01/2021 Encntr for general adult medical exam w/o abnormal findings; Recorded Elsewhere : No Locati on: [facility] So urce: EHR Chron ic: N Practic e ID: 0001 Bill able Time: 09:30:00 AM [facility] 17:13:32 Evaluati on finding Completed 201803/01/2021 Oth abn and inconclus placido findings on dx imaging of breast;Re corded Elsewhere : No Locati on: [facility] So urce: EHR Chron ic: N Practic e ID: 0001 Bill able Time: 08:19:09 AM [facility] 17:13:23 Problem Notes None recorded. Procedures Surgical History Date Name Laterality Status Provider Name and Address Organization Details Recorded Time 03/02/20 21 Date of Last Mammogram completed [facility] 03/02/2021 15:08:53 04/17/20 17 Date of Last Pap Smear completed [facility] 03/01/2021 17:18:32 05/15/18 97 Total Hysterectomy completed [facility] 03/01/2021 17:17:23 05/15/18 94 Tubal Ligation completed [facility] 03/01/2021 17:17:08 dilation of pyloric stenosis using fluoroscopic guidance completed Ese Swan [facility]- [address], [place], [address], [facility] 03/02/2021 15:22:04 Imaging Results None recorded. Procedure Notes None recorded. Medical Equipment None [...] Elsewher e: No Locat ion: [facility] odify By: liban mishra DateTime : 09/18/19 01:40:38 PM Not Available Not Available Not Available sulfameth azine (bulk) powder 10/20 completed Prescrib ed Elsewher e: Yes Loca tion: [facility] odify By: edil lopes DateTime : [...] Elsewher e: No Locat ion: [facility] odify By: edil lopes DateTime : 10/21/19 16 10:00:00 AM Not Available Not Available Not Available Vitamin D2 1,250 mcg (50,000 unit) capsule take 1 capsule by oral route every week 03/02 completed Prescrib ed Elsewher e: No Locat ion: [facility] odify By: starr lopes DateTime : 11/23/19 08:25:52 AM Not Available Not Available Not Available ketoconaz ole 2 % topical cream apply by topical route every day to the affected area(s) 04/17 completed Prescrib ed Elsewher e: No Locat ion: [facility] odify By: edil lopes DateTime : 10/21/19 16 10:00:00 AM Not Available Not Available Not Available Stanback Headache Powder 650 mg oral packet 03/02 completed Prescrib ed Elsewher e: Yes Loca tion: [facility] odify By: starr lopes DateTime : 09/21/19 12 10:00:00 AM Not Available Not Available Not Available Calcio Mayi 500 mg tablet 03/02 completed Prescrib ed Elsewher e: Yes Loca tion: [facility] odify By: starr coffmanunttad DateTime : 09/21/19 12 10:00:00 AM Not Available Not Available Not Available Vitamin D3 125 mcg (5,000 unit) tablet Take by oral route. active Not Available Not Available No t Available Vitals Date Recorded Body height Body mass index (BMI) Body weight Systolic And Diastolic Provider Name and Address Organization Details Last Updated DateTime 03/02/2021 163.83 cm 40.4 kg/m2 908308.58 g 122/78 mm[Hg] Maxine [facility] 03/02/2021 15:08:16 Social History Question Answer Notes LastModified by Snip2Code Details LastModified Time Tobacco Smoking Status Never Smoker [facility] 03/01/2021 17:16:36 Are You Blind Or Do You Have [...] Yes Information not available 03/01/2021 Do You Use Sunscreen Routinely? Yes Information not available 03/01/2021 Sex: Unknown Functional Status Question Answer Note LastModified by Organizat ion Details LastModified Time Do you use any illicit or recreational drugs? No Information not available 03/01/2021 What is your level of alcohol consumption? Occasional Information not available 03/01/2021 Are you able to walk independently without assistance or assistive devices? YESWOREST Information not available 03/01/2021 What is your exercise level? Occasional Information not available 03/01/2021 Mental Status Question Answer Note LastModified by Organization D etails LastModified Time Do you feel stressed (tense, restless, nervous, or anxious, or unable to sleep at night)? [id number] Information not available 03/01/2021 Family History Relationship Description Onset Age of this Age Resolved Age Notes LastModified by Organization Details LastModified Time Father Malignant neoplasm of colon Not available 2020 17:15:27 Father [...] Not available 2020 14:54:42 Maternal Aunt Malignant neoplasm of breast Not available 2020 14:55:26 Maternal Aunt Malignant neoplasm of breast Not available 2020 14:55:26 Medical [...] Diagnosis SNOMED-CT Code Diagnosis ICD10 Code Diagnosis IMO Codes Diagnosis Note [id number] Ese Swan , [facility] [address] [address] 03/02/2021 14:33:51 03/02/2021 15:39:25 Gynecologic examination [id number] Z01.419 Take Calcium with Vitamin D 12-1500mg daily. Do monthly self breast exams. It is advised to get annual flu shot in the fall and she could obtain at [facility] or [facility] care clinic. If you haven't received the Tdap [...] done today wnlColon 2019 managed by PCP ([email or web address])Dexa consider age 61yo unless otherwise indicated. Family his tory of breast cancer [id number] Z80.3 Z80.0 Family history of colon & [...] Recorded Advance Directives Directive None Recorded Payers Insurance Date Sequence Insurance Name Policy Number Policy Mohan Covered Member ID Mohan Member ID Guarantor Name 03/02/[address] [facility]: (MEDICARE SUPPLEMENT) [id number] Yovani Nixon [id number] 03/02/[address] 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 For vaginal bleeding, patient reportshistory of menopause having occurredandno history of post menopausal bleeding. For urinary symptoms, patient reportsno hematuria,no incontinence,no nocturia, andno urinary frequency. For vulva, patient reportsno genital lesionandno vulvar atrophy. For vagina, patient reportsnormal vaginal dischargeandno vaginal atrophy.Breast symptomsFor breast, patient reportsno breast lump,no nipple discharge, andno breast pain.Psychological symptomsFor sexual complaints, patient reportsno sexual complaints. For psychological symptoms, patient reportsno depressionandno anxiety.Preventative measuresFor preventive measures, patient reportsencourage regular mammograms starting age 40,encourage self breast examination,encourage regular exercise,encourage no tobacco use,mammogram performed within the past year, andhistory of recent colonoscopy. Ese Swan, [facility]- [address], [place], [address], [place] [facility] 03/02/2021 15:37:41 OBGyn Episode Ob Episode Information Episode Created Date Number of Fetuses Patient Bloodtype Patient rh Status Prepregnancy Weight lbs Domestic Partner Domestic Partner Phone Father Name Canned Food Reconditioning Inspector Status 03/01/20 21 1 CLOSED Fetus Data First Name Last Name Admitted to NICU Weight (g) Sex Living Outcome Pediatric Complications Fetus ID Race Codes Race Delivery Type F [id number] Vaginal Delivery Ayad Calculation Initial Ayad Date [...] Domestic Partner Domestic Partner Phone Father Name Canned Food Reconditioning Inspector Status 03/01/20 21 1 CLOSED Fetus Data First Name Last Name Admitted to NICU Weight (g) Sex Living Outcome Pediatric Complications Fetus ID Race Codes Race Delivery Type F [id number] Vaginal Delivery Ayad Calculation Initial Ayad Date [...]
[2025-03-14 08:05] VITALS: BP 141/66; PULSE 84; RESP 20; TEMP 36.4; O2SAT 98
[2025-03-14] MEDS: LACTATED RINGERS 1,000 ML 150 ML IV CONT (08:17)
--- NOTE | 2025-03-14 08:21 | WPDANESEPPF ---
Anes - Initial Pre Proc Eval Procedure: Operation Date: 03/14/25 09:30 Proposed Procedures p Screening Colonoscopy - Celestino Nguyen MD Date/Time: 03/14/25 08:21 Surgeon: Celestino Nguyen MD Pre Op Diagnosis: Personal history of colon polyps, unspecified Patient Data Age: 59 Gender: F Height: 1.65 m Weight: 113.9 kg Last Vital Signs Temp 97.6 F 03/14/25 08:05 Pulse 84 03/14/25 08:05 Resp 20 03/14/25 08:05 BP 141/66 H 03/14/25 08:05 Pulse Ox 98 03/14/25 08:05 O2 Del Method Room Air 03/14/25 08:05 Allergies Allergy/AdvReac Type Severity Reaction Status Date / Time No Known Allergies Allergy Verified 03/14/25 08:19 Home Medications ?Medication ?Instructions ?Recorded ?Confirmed ?Type aspirin 81 mg tablet,delayed 81 mg PO DAILY 12/19/19 03/14/25 History release (Rick Low Dose Aspirin) spironolactone 100 mg tablet 100 mg PO DAILY 12/19/19 03/14/25 History cholecalciferol (vitamin D3) 50 4,000 unit PO DAILY 03/02/21 03/14/25 History mcg (2,000 unit) capsule (Vitamin D3) levothyroxine 50 mcg tablet See Rx Instructions .Route 04/10/24 03/14/25 Rx .COMPLEX #90 tabs omeprazole 20 mg capsule,delayed 20 mg PO DAILY #90 caps 07/10/24 03/14/25 Rx release atorvastatin 10 mg tablet 10 mg PO DAILY #30 tabs 02/20/25 03/14/25 Rx Patient hx anesthesia problems: none Family hx anesthesia problems: none Results Review: All pre-operative results and documents have been reviewed as part of the pre-operative evaluation. [facility] Past Medical History Medical History Nocturia Nocturia Hypothyroid Hyperlipidemia Family History Family History Mother Diabetes mellitus Hypertension Cerebrovascular accident Father Family history of cardiovascular disease Family history of chronic obstructive pulmonary disease Carcinoma of colon Social History Social History Smoking status: Never smoker Second hand tobacco smoke exposure: No Alcohol intake: never Substance use: unknown Substance use type: does not use Lack of Transportation: No Lack of Food: Never True Current Housing: I Have Housing Concerned About Future Housing: No Difficulty Paying Gas/Electric Bills: No Difficulty Paying for Meds: No Currently Unemployed: No Education: Associate Degree Difficulty w/ Childcare or Family Care: No Living arrangements: with family Spiritual care concerns: No Anes - Eval Final PreProcedure Day of Procedure 03/14/25 08:21 Patient weight: morbidly obese Lungs: normal air movement Airway: Mallampati scale class II Neurological: alert and oriented Last oral intake: >/= 8 hours ASA classification: III Emergent: no Anesthetic plan: proceed Anesthesia type and monitoring: general GIVS and standard monitoring Results Review: All pre-operative results and documents have been reviewed as part of the pre-operative evaluation. Hyperlipidemia, hypothyroidism, BMI 41, active, no cp or sob w 1-2 fos. Informed Consent: The patient's anesthetic plan and its attendant risks and benefits were discussed with the patient/family/POA. Questions were solicited and answers provided to the satisfaction of the patient/family/POA.
--- NOTE | 2025-03-14 08:58 | PM.IMHP ---
H&P: HPI History of Present Illness Date/Time: 03/14/25 08:58 Chief Complaint: Family history of colon cancer Narrative: This patient has family history of colorectal cancer. Her father was diagnosed with colon cancer in his mid 60s. The patient's last colonoscopy was 5 years ago. Review of Systems Review of Systems: All systems reviewed & are unremarkable except as noted in HPI and below PMFSH Past Medical History Medical History Nocturia Nocturia Hypothyroid Hyperlipidemia Family History Family History Mother Diabetes mellitus Hypertension Cerebrovascular accident Father Family history of cardiovascular disease Family history of chronic obstructive pulmonary disease Carcinoma of colon Social History Social History Smoking status: Never smoker Second hand tobacco smoke exposure: No Alcohol intake: never Substance use: unknown Substance use type: does not use Lack of Transportation: No Lack of Food: Never True Current Housing: I Have Housing Concerned About Future Housing: No Difficulty Paying Gas/Electric Bills: No Difficulty Paying for Meds: No Currently Unemployed: No Education: Associate Degree Difficulty w/ Childcare or Family Care: No Living arrangements: with family Spiritual care concerns: No Meds Home Medications and Allergies Home Medications ?Medication ?Instructions ?Recorded ?Confirmed ?Type aspirin 81 mg tablet,delayed 81 mg PO DAILY 12/19/19 03/14/25 History release (Rick Low Dose Aspirin) spironolactone 100 mg tablet 100 mg PO DAILY 12/19/19 03/14/25 History cholecalciferol (vitamin D3) 50 4,000 unit PO DAILY 03/02/21 03/14/25 History mcg (2,000 unit) capsule (Vitamin D3) levothyroxine 50 mcg tablet See Rx Instructions .Route 04/10/24 03/14/25 Rx .COMPLEX #90 tabs omeprazole 20 mg capsule,delayed 20 mg PO DAILY #90 caps 07/10/24 03/14/25 Rx release atorvastatin 10 mg tablet 10 mg PO DAILY #30 tabs 02/20/25 03/14/25 Rx Allergies Allergy/AdvReac Type Severity Reaction Status Date / Time No Known Allergies Allergy Verified 03/14/25 08:19 Vital Signs Vital Signs - 24 hr 10/31/25 08:05 Temperature 97.6 F Pulse Rate 84 Respiratory Rate 20 Blood Pressure 141/66 H Pulse Oximetry 98 Oxygen Delivery Room Air Exam Const: General: cooperative and healthy appearing Resp: Effort & Inspection: normal respiratory effort and able to speak in complete sentences Auscultation: clear to auscultation bilaterally Cardio: Rate: regular rate Rhythm: regular rhythm GI: Inspection: normal to inspection GI Palp: No No hepatosplenomegaly present Auscultation: normal bowel sounds Rectal Exam: deferred Skin: General skin exam: normal color Psych: Appearance: grossly normal Mental Status: mental status grossly normal Assessment and Plan Assessment and plan (1) Family history of colon cancer: Code(s): Z80.0 - Family history of malignant neoplasm of digestive organs Status: Acute Assessment and Plan: The patient is deemed a good candidate for the procedure. Consent signed. Will proceed.
[2025-03-14 09:32] VITALS: BP 109/64; PULSE 81; RESP 20; O2SAT 99
[2025-03-14 09:42] VITALS: BP 122/72; PULSE 78; RESP 18; O2SAT 100
[2025-03-14 09:52] VITALS: BP 129/75; PULSE 66; RESP 16; O2SAT 100
== END 2025-03-14 10:02 | disposition home or self-care (01) ==
PROVIDERS: PCP Internal Medicine; Referring Provider Internal Medicine; Visit Provider Internal Medicine Gastroenterology
PROC: 0DJD8ZZ Inspection of Lower Intestinal Tract, Via Natural or Artificial Opening Endoscopic (ICD-10-PCS; CPT 45378; principal; 2025-03-14 09:30)
DX: Z12.11 Encounter for screening for malignant neoplasm of colon (principal); Z86.0100 Personal history of colon polyps, unspecified; Z80.0 Family history of malignant neoplasm of digestive organs; E66.01 Morbid (severe) obesity due to excess calories; Z68.41 Body mass index [BMI] 40.0-44.9, adult
CPT/HCPCS: 45378; J2003; J2704; J7120

== ENCOUNTER 2025-03-19 09:30 | Outpatient (CLI) | payer BC, SELFPAY ==
--- NOTE | 2025-03-19 09:44 | ECG_ITS ---
Test Date: 2025-03-19 09:52:16 Measurements Intervals [place] Rate: 78 P: 46 AK: 173 QRS: -25 QRSD: 114 T: 7 QT: 368 QTc: 420 Interpretive Statements SINUS RHYTHM POSSIBLE LEFT ATRIAL ENLARGEMENT [-0.1mV P WAVE IN V1/V2] BORDERLINE LEFT AXIS DEVIATION [QRS AXIS < -20] LOW QRS VOLTAGE IN PRECORDIAL LEADS [QRS DEFLECTION < 1.0 mV IN CHEST LEADS] PATTERN CONSISTENT WITH PULMONARY DISEASE INCOMPLETE RIGHT BUNDLE BRANCH BLOCK [90+ ms QRS DURATION, TERMINAL R IN V1/V2, 40+ ms S IN I/aVL/V4/V5/V6] ABNORMAL ECG No previous ECG available for comparison Electronically Signed On 03-19-2025 14:40:18 BOTTLED BEVERAGE INSPECTOR by Zach Cruz M.D.
--- OUTSIDE RECORDS SUMMARY | 2025-03-19 10:17 | XMS_ITS | Encounter Summary ---
Author Organization [facility] Address [address] [place] [address] Care Team Providers Care Gandy Dancer Name Role Phone Unavailable Primary Care Provider Unavailabl e Encounter Details Date Type Department Care Team (Late st Contact Info) Description 03/30/2020 Lab Requisition [facility] DermPath Lab [address] [facility] [place] [address] Vianey Quiroz MD [address] [facility] [address] [place] [address] Social History Tobacco Use Types Packs/Day Years Used Date Smoking Tobacco: Never Assessed Comments Unknown Sex and Gender Information Value Date Recorded Sex Assigned at Not on file Legal Sex Female 5:34 PM [facility] Gender Identity Not on file Sexual Orientation Not on file documented as of this encounter Plan of Treatment Not on file documented as of this encounter Procedures Procedure Name Priority Date/Time Associated Diagnosis Comments DERMATOPATHOLOGY Routine 03/26/2020 12:0 0 AM [facility] documented in this encounter Results * DERMATOPATHOLOGY (03/26/2020 12:00 AM [facility]) Case Report Dermatopathology Report Case: [id number] Authorizing Provider: Vianey Quiroz MD Collected: 03/26/2020 12:00 AM Ordering Location: [facility] D[facility] Lab Received: 03/30/2020 10:48 AM Pathologist: Jessica Shepherd MD Specimen: Skin, right wade 0 3:45 PM [facility] DERMATOPATHOLOGY LABORATORY Final Diagnosis Specimen A. SKIN, right wade: SEBORRHEIC KERATOSIS, MACULAR (L82.1) 0 3:45 PM [facility] DERMATOPATHOLOGY LABORATORY at 1545 [facility] Clinical History Lentigo R/O atypia; growing irregular color 0 3:45 PM [facility] DERMATOPATHOLOGY LABORATORY Gross Description Specimen A: Received is one formalin filled container labeled with the patient's name and designated right wade. The specimen consists of a shave biopsy measuring 12x7x1 and 3x1x1 mm. Jar 0. 0 3:45 PM [facility] DERMATOPATHOLOGY LABORATORY Microscopic Description Specimen A. SKIN, right wade: Sections show a relatively broad, flat proliferation of small keratinocytes. The surface is gently papillated, and there is increased basilar pigmentation. 0 3:45 PM [facility] DERMATOPATHOLOGY LABORATORY Disclaimer An external and internal positive and negative controls are appropriate for the histochemical, immunohistochemical and immunofluorescence stain(s) in this case (if any), except where stated explicitly. The performance characteristics of the stain(s) cited in this report were developed and its performance characteristic determined by the Dermatopathology Laboratory at [facility], directed by Dr. Alis Shepherd. These tests need not be, and therefore are not, approved by the [place] Food and Drug Administration. The tests are used for clinical purposes. Billing Codes Specimen Charges Stain Charges 22325 1 0 3:45 PM [facility] DERMATOPATHOLOGY LABORATORY Embedded Images 0 3:45 PM [facility] DERMATOPATHOLOGY LABORATORY Pathology/Cytolog y TISSUE SPECIMEN FROM SKIN / Unknown 03/26/2020 03/30/2020 10:48 AM [facility] iVaney Quiroz MD LAB - PATHOLOGY/CYTOLOGY OR DERABLES Final Result DERMATOPATHOLOGY LABORATORY [facility] - Department of Dermatology [address] [place] [address], [facility] [phone] documented in this encounter Visit Diagnoses Not on filedocumented in this encounter
--- OUTSIDE RECORDS SUMMARY | 2025-03-19 10:17 | XMS_ITS | Encounter Summary ---
Author Organization [facility] Address [address] [place] [address] Care Team Providers Care Cold Water Machine Operator Name Role Phone Unavailable Primary Care Provider Unavailabl e Encounter Details Date Type Department Care Team (Late st Contact Info) Description 06/13/2018 Lab Requisition [facility] D[facility] [address] [place] [id number] Vianey Quiroz MD [address] [facility] [address] [place] [address] Social History Tobacco Use Types Packs/Day Years Used Date Smoking Tobacco: Never Assessed Comments Unknown Sex and Gender Information Value Date Recorded Sex Assigned at Not on file Legal Sex Female 5:34 PM 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 CATHETERIZATION TECHNICIAN Gender Identity Not on file Sexual Orientation Not on file documented as of this encounter Plan of Treatment Not on file documented as of this encounter Procedures Procedure Name Priority Date/Time Associated Diagnosis Comments DERMATOPATH TECHNICAL REPORT Routine 06/11/2018 12:00 AM CARDIAC CATHETERIZATION TECHNICIAN documented in this encounter Results * DERMATOPATH TECHNICAL REPORT (06/11/2018 12:00 AM CARDIAC CATHETERIZATION TECHNICIAN) Case Report Dermatopathology Report Case: [id number] Authorizing Provider: Vianey Quiroz MD Collected: 06/11/2018 12:00 AM Pathologist: Judy Woodard MD Received: 06/13/2018 06:30 AM Specimen: Skin, right back 9 11:16 AM CARDIAC CATHETERIZATION TECHNICIAN DERMATOPATHOLOGY LABORATORY Clinical History Nevus vs other, irritated. 9 11:16 AM CARDIAC CATHETERIZATION TECHNICIAN DERMATOPATHOLOGY LABORATORY Gross Description Specimen A: Received is one formalin filled container labeled with the patient's name and designated right back. The specimen consists of a shave measuring [id number]. Jar 0. [facility] Dermatopathology Laboratory performed the technical component only. 11:16 AM [facility] DERMATOPATHOLOGY LABORATORY Embedded Images 11:16 AM [facility] DERMATOPATHOLOGY LABORATORY DISCLAIMER An external and internal positive and negative controls are appropriate for the histochemical, immunohistochemical and immunofluorescence stain(s) in this case (if any), except where stated explicitly. The performance characteristics of the stain(s) cited in this report were developed and its performance characteristic determined by the Dermatopathology Laboratory at [facility], directed by Dr. Alis Shepherd. These tests need not be, and therefore are not, approved by the [place] Food and Drug Administration. The tests are used for clinical purposes. 11:16 AM [facility] DERMATOPATHOLOGY LABORATORY at [address]6 CARDIAC CATHETERIZATION TECHNICIAN Pathology/Cytolog y TISSUE SPECIMEN FROM SKIN / Unknown 06/11/2018 06/13/2018 6:30 AM CARDIAC CATHETERIZATION TECHNICIAN Vianey Quiroz MD LAB - PATHOLOGY/CYTOLOGY OR DERABLES Final Result DERMATOPATHOLOGY LABORATORY [facility] [place] Department of Dermatology [address] [place] [address], [facility] [phone] documented in this encounter Visit Diagnoses Not on filedocumented in this encounter
--- OUTSIDE RECORDS SUMMARY | 2025-03-19 10:17 | XMS_ITS | Clinical Summary ---
Author Organization 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 This disclosure is being madepursuant to the Care Everywhere program and may not contain all information available regarding this patient. Last updated 18.[facility] 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
--- OUTSIDE RECORDS SUMMARY | 2025-03-19 10:17 | XMS_ITS | Clinical Summary ---
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
--- OUTSIDE RECORDS SUMMARY | 2025-03-19 10:17 | XMS_ITS | Clinical Summary ---
Author Organization [facility] Address [address] [place] [id number] Care Team Providers Care Negative Cutter Name Role Phone Unavailable Primary Care Provider [...]
== END 2025-03-19 09:31 | disposition home or self-care (01) ==
LOC: ANHCARD 09:32
PROVIDERS: PCP Internal Medicine; Visit Provider Podiatrist Foot & Ankle Surgery
DX: R94.31 Abnormal electrocardiogram [ECG] [EKG] (principal); R03.0 Elevated blood-pressure reading, without diagnosis of hypertension
CPT/HCPCS: 93005